=== PATIENT | male | born 1955 ===

== ENCOUNTER 2018-09-15 19:45 | Observation (INO) | payer MEDICARE ==
--- NOTE | 2018-09-15 20:22 | ED PDOC ---
Lower Extremity Pain/Injury Time Seen by Provider: 09/15/18 19:56 Chief Complaint (Nursing): Lower Extremity Problem/Injury Chief Complaint (Provider): Lower Extremity Problem/Injury History Per: Patient History/Exam Limitations: no limitations Onset/Duration Of Symptoms: Days (x 1 week) Current Symptoms Are (Timing): Still Present Additional Complaint(s): 63 year old male with a history of Parkinsonism presents to the ED with trouble ambulating and leg swelling onset one week. Patient is currently taking cinemat (carbidopa and levodopa) for Parkinsonism. For the past week, he has had worsening gait associated leg swelling, right leg worse than left. He denies fever, cough, shortness of breath, chest pain, nausea, or vomiting. Patient is complaint with medications. When asked if he sees a neurologist, he said no because he is uninsured and unable to see a specialist. 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 PMD: [facility] Past Medical History Reviewed: Historical Data Vital Signs: Last Vital Signs Temp 98.9 F 09/15/18 19:46 Pulse 88 09/15/18 19:46 Resp 18 09/15/18 19:46 BP 121/75 09/15/18 19:46 Pulse Ox 99 09/15/18 19:46 - Medical History PMH: Parkinson's Disease - Surgical History Other surgeries: right eye surgery following traumatic injury in 1981. - Family History Family History: States: Unknown Family Hx - Social History Current smoker - smoking cessation education provided: No Ex-Smoker (has not smoked in the last 12 months): No Alcohol: None Drugs: Denies - Home Medications Home Medications: Ambulatory Orders Medication Instructions Recorded Carbidopa/Levodopa [Sinemet Cr 1 tab PO TID 09/16/18 25-100 Tablet] - Allergies Allergies/Adverse Reactions: Allergies Allergy/AdvReac Type Severity Reaction Status Date / Time No Known Allergies Allergy Verified 09/15/18 19:46 Review of Systems ROS Statement: Except As Marked, All Systems Reviewed And Found Negative Eyes: Positive for: Other (right eye blindness) Musculoskeletal: Positive for: Other (leg swelling) Physical Exam - Reviewed Nursing Documentation Reviewed: Yes Vital Signs Reviewed: Yes - Physical Exam Appears: Positive for: No Acute Distress Head Exam: Positive for: ATRAUMATIC, NORMOCEPHALIC Skin: Positive for: Normal Color, Warm, Dry Eye Exam: Positive for: Other (Right eye blindness). Negative for: PERRL (not in right eye) Cardiovascular/Chest: Positive for: Regular Rate, Rhythm. Negative for: Murmur Respiratory: Positive for: Normal Breath Sounds. Negative for: Respiratory Distress Gastrointestinal/Abdominal: Positive for: Normal Exam, Soft. Negative for: Tenderness Extremity: Positive for: Other (1+ edema lower extremities, 3+ edema, warmth, erythema and induration to the tibial surface) Neurologic/Psych: Positive for: Alert, Oriented, Other (pillidrol tremor and mass phases) - Laboratory Results Result Diagrams: 09/15/18 20:55 09/15/18 20:55 - ECG O2 Sat by Pulse Oximetry: 99 (RA) Pulse Ox Interpretation: Normal Medical Decision Making Medical Decision Making: Time: 2004 Initial Impression: 63 year old male with worsening gait in setting of known Parkinsonism and lower extremity swelling Initial Plan: --BNP --CMP --Lact acid --Troponin --CBC with differentials --U dip --PTT --Prothrombin time --Blood culture --UA --US duplex lower extremities 22:30 Lower Extremity US FINDINGS: DEEP VEINS: The common femoral, superficial femoral, and popliteal veins are echolucent and compressible. There is normal color Doppler flow throughout. The visualized calf veins appear patent. SUPERFICIAL VEINS: The visualized greater saphenous vein is patent. SOFT TISSUES: No popliteal fossa cyst or other abnormalities. IMPRESSION: No deep venous thrombosis evident on bilateral lower extremity examination. 23:00 Labs reviewed and showed no clinical significant abnormalities with exception of UA that is indicative of UTI. In this provider's opinion unsteady gait is likely related to cellulitic process of right lower extremity. Patient will be admitted for antibiotic treatment as well as neurological consultation for worsening Parkinson's. Diagnosis: cellulitis of right lower extremity, UTI and Parkinson's disease [place] referred to Dr Narinder nicholson licensed professional counselor Scribe Attestation: Documented by Jane Lambert, acting as a scribe for Nile Pelletier MD Provider Scribe Attestation: All medical record entries made by the Scribe were at my direction and personally dictated by me. I have reviewed the chart and agree that the record accurately reflects my personal performance of the history, physical exam, medical decision making, and the department course for this patient. I have also personally directed, reviewed, and agree with the discharge instructions and disposition. Disposition - Clinical Impression Clinical Impression: Cellulitis of right lower extremity, UTI (urinary tract infection), Parkinsonism Discussed With : Syed Barcenas - Disposition Disposition Time: 23:00 Condition: FAIR - Pt Status Changed To: Hospital Disposition Of: Inpatient - Admit Certification Admit to Inpatient:: After my assessment, the patient will require hospitalization for at least two midnights. This is because of the severity of symptoms shown, intensity of services needed, and/or the medical risk in this patient being treated as an outpatient.
[2018-09-15] MEDS ORDERED: Alum-Mag Hydrox-Simethicone Susp (30 mL) PO STA (20:31)
[2018-09-15 21:07] LABS: BASO # 0.1 K/uL (0.0-0.2); BASO % 1.1 % (0.0-2.0); EOS # 0.5 K/uL (0.0-0.7); HEMOGLOBIN 12.9 g/dL (12.0-18.0); LYMPH # 2.6 K/uL (1.0-4.3); MEAN CELL VOLUME 88.1 fl (80.0-94.0); MEAN CORPUSCULAR HEMOGLOBIN 29.4 pg (27.0-31.0); MEAN CORPUSCULAR HGB CONC 33.4 g/dL (33.0-37.0); MEAN PLATELET VOLUME 8.8 fl (7.2-11.7); MONO # 0.5 K/uL (0.0-0.8); MONO % 5.6 % (0.0-10.0); NEUT # 4.5 K/uL (1.8-7.0); NEUT % 55.3 % (50.0-75.0); NRBC % 0.1 % (0.0-0.0); RBC 4.38 Mil/uL (4.40-5.90); WHITE BLOOD COUNT 8.1 K/uL (4.8-10.8)
[2018-09-15 21:13] LABS: INR 1.1; PROTHROMBIN TIME 12.7 Seconds (9.8-13.1)
[2018-09-15 21:15] LABS: ALBUMIN 4.3 g/dL (3.5-5.0); ALT/SGPT 22 U/L (21-72); AST/SGOT 33 U/L (17-59); BLOOD UREA NITROGEN 17 mg/dl (9-20); CALCIUM 9.9 mg/dL (8.4-10.2); GFR NON-AFRICAN AMERICAN > 60
[2018-09-15 21:16] LABS: PARTIAL THROMBOPLASTIN TIME 31.7 Seconds (25.6-37.1)
[2018-09-15 21:27] LABS: B-TYPE NATRIURETIC PEPTIDE 39.4 pg/ml (0-900)
[2018-09-15] MEDS ORDERED: Alum-Mag Hydrox-Simethicone Susp (30 mL) ONE (22:34)
[2018-09-15] MEDS ORDERED: Piperacillin/Tazobact 3.375 GM in Sodium Chloride 0.9% 100 ML IV STA (22:53)
[2018-09-15 23:01] LABS: URINE BACTERIA FEW (<OCC); URINE BILIRUBIN NEGATIVE (NEGATIVE); URINE BLOOD MODERATE (NEGATIVE); URINE CLARITY TURBID (Clear); URINE COLOR YELLOW (YELLOW); URINE GLUCOSE (UA) NEG (Normal); URINE LEUKOCYTE ESTERASE LARGE Leu/uL (Negative); URINE PROTEIN 100 mg/dL (NEGATIVE); URINE UROBILINOGEN 0.2-1.0 mg/dL (0.2-1.0); WBC CLUMPS MOD /hpf
[2018-09-15] MEDS ORDERED: Piperacillin/Tazobact 3.375 gm Inj IVPB ONE (23:03)
[2018-09-15] MEDS ORDERED: Vancomycin 1 g Inj ONE (23:17)
--- NOTE | 2018-09-16 00:14 | CP.PCM.HP ---
<ScanlonJael lopez - Last Filed: 09/16/18 01:32> History of Present Illness - History of Present Illness History of Present Illness: 63 year old male with hx of parkinsonism presented to ED with complaint right lower extremity erythema and edema present for past week. He denies any pain the lower extremity, denies fevers, chills. He has history of this in the past, treated for similar sx about 3-4 month ago. History of parkinsonism, does not have neurologist. per chart taking cinemet. No change in tremors, reports difficulty with gait for past few days. ROS: No visual changes, no harry ucinations, no headahces, no chest pain, dyspnea, abdominal pain, urinary symptoms. PMH: parkinsonism Meds: cinemet Allergies: NKDA Social: nonsmoker, no etoh use Surgical hx : right eye surgery Present on Admission - Present on Admission Any Indicators Present on Admission: No Review of Systems - Review of Systems Review of Systems: as per hpi Past Patient History - Past Social History Alcohol: None Drugs: Denies - NEUROLOGICAL Hx Parkinson's Disease: Yes - PSYCHIATRIC Hx Substance Use: No Meds Allergies/Adverse Reactions: Allergies Allergy/AdvReac Type Severity Reaction Status Date / Time No Known Allergies Allergy Verified 09/15/18 19:46 Physical Exam - Constitutional Appears: Non-toxic (mask like face) - Eye Exam Eye Exam: Normal appearance - ENT Exam ENT Exam: Mucous Membranes Moist - Respiratory Exam Respiratory Exam: Clear to Auscultation Bilateral, NORMAL BREATHING PATTERN - Cardiovascular Exam Cardiovascular Exam: REGULAR RHYTHM, +S1, +S2 - GI/Abdominal Exam GI & Abdominal Exam: Soft (nontender, nondistended) - Extremities Exam Additional comments: +2 pitting edema right lower extremity with erythema and warms in gaiter distribution, no erythema in left leg, +1 pitting edema in left leg - Neurological Exam Neurological exam: Alert Additional comments: gait not assessed - Skin Additional comments: noted in extremity exam Results - Vital Signs Recent Vital Signs: Last Vital Signs Temp 98.9 F 09/15/18 19:46 Pulse 88 09/15/18 19:46 Resp 18 09/15/18 19:46 BP 121/75 09/15/18 19:46 Pulse Ox 99 09/15/18 23:08 - Labs Result Diagrams: 09/15/18 20:55 09/15/18 20:55 Labs: Laboratory Results - last 24 hr 09/15/18 09/15/18 09/15/18 20:55 20:55 20:55 WBC 8.1 RBC 4.38 L Hgb 12.9 Hct 38.5 MCV 88.1 MCH 29.4 MCHC 33.4 RDW 14.0 Plt Count 246 MPV 8.8 Neut % (Auto) 55.3 Lymph % (Auto) 32.0 [place] % (Auto) 5.6 Eos % (Auto) 6.0 H Baso % (Auto) 1.1 Neut # (Auto) 4.5 Lymph # (Auto) 2.6 [place] # (Auto) 0.5 Eos # (Auto) 0.5 Baso # (Auto) 0.1 PT 12.7 INR 1.1 APTT 31.7 Sodium 144 Potassium 3.9 Chloride 105 Carbon Dioxide 33 H Anion Gap 10 BUN 17 Creatinine 0.9 Est GFR ( Amer) > 60 Est GFR (Non-Af Amer) > 60 Random Glucose 94 Lactic Acid Calcium 9.9 Total Bilirubin 0.4 AST 33 ALT 22 Alkaline Phosphatase 76 Troponin I < 0.0120 NT-Pro-B Natriuret Pep 39.4 Total Protein 8.7 H Albumin 4.3 Globulin 4.4 H Albumin/Globulin Ratio 1.0 Urine Color Urine Clarity Urine pH Ur Specific [place] Urine Protein Urine Glucose (UA) Urine Ketones Urine Blood Urine Nitrate Urine Bilirubin Urine Urobilinogen Ur Leukocyte Esterase Urine RBC (Auto) Urine WBC Clumps (Auto) Urine Microscopic WBC Urine Bacteria Urine Yeast (Budding) C. difficile Ag & Toxin 09/15/18 09/15/18 09/15/18 20:55 21:12 22:35 WBC RBC Hgb Hct MCV MCH MCHC RDW Plt Count MPV Neut % (Auto) Lymph % (Auto) [place] % (Auto) Eos % (Auto) Baso % (Auto) Neut # (Auto) Lymph # (Auto) [place] # (Auto) Eos # (Auto) Baso # (Auto) PT INR APTT Sodium Potassium Chloride Carbon Dioxide Anion Gap BUN Creatinine Est GFR ( Amer) Est GFR (Non-Af Amer) Random Glucose Lactic Acid 0.7 Calcium Total Bilirubin AST ALT Alkaline Phosphatase Troponin I NT-Pro-B Natriuret Pep Total Protein Albumin Globulin Albumin/Globulin Ratio Urine Color Yellow Urine Clarity Turbid Urine pH 5.0 Ur Specific [place] 1.016 Urine Protein 100 Urine Glucose (UA) Neg Urine Ketones Negative Urine Blood Moderate Urine Nitrate Positive H Urine Bilirubin Negative Urine Urobilinogen 0.2-1.0 Ur Leukocyte Esterase Large Urine RBC (Auto) 33 H Urine WBC Clumps (Auto) Mod H Urine Microscopic WBC 1582 H Urine Bacteria Few H Urine Yeast (Budding) Mod H C. difficile Ag & Toxin Negative Assessment & Plan - Assessment and Plan (Free Text) Assessment: 63 year old male with history of parkinsonsm admitted for cellulitis, with parkinsonsim exacerbation. Patient is afebrile without leukocytosis. UA + WBC, Nitrates and leukocytes however pt is asymptomatic. Reported changes in gait, difficulty walking at home, denies any falls. Does not use walker or cane. DVT ruled out with u/s. #Cellulitis #Parkinsonism exacerbation #UTI #DVT prophylaxis -IV ancef -Neuro consult -follow up urine culture -Lovenox 40mg sc Patient seen and examined with attending. <Syed Barcenas - Last Filed: 09/16/18 02:23> Results - Vital Signs Recent Vital Signs: Last Vital Signs Temp 98.7 F 09/16/18 00:58 Pulse 103 H 09/16/18 00:58 Resp 19 09/16/18 00:58 BP 131/74 09/16/18 00:58 Pulse Ox 99 09/16/18 01:24 - Labs Result Diagrams: 09/15/18 20:55 09/15/18 20:55 Labs: Laboratory Results - last 24 hr 09/15/18 09/15/18 09/15/18 20:55 20:55 20:55 WBC 8.1 RBC 4.38 L Hgb 12.9 Hct 38.5 MCV 88.1 MCH 29.4 MCHC 33.4 RDW 14.0 Plt Count 246 MPV 8.8 Neut % (Auto) 55.3 Lymph % (Auto) 32.0 [place] % (Auto) 5.6 Eos % (Auto) 6.0 H Baso % (Auto) 1.1 Neut # (Auto) 4.5 Lymph # (Auto) 2.6 [place] # (Auto) 0.5 Eos # (Auto) 0.5 Baso # (Auto) 0.1 PT 12.7 INR 1.1 APTT 31.7 Sodium 144 Potassium 3.9 Chloride 105 Carbon Dioxide 33 H Anion Gap 10 BUN 17 Creatinine 0.9 Est GFR ( Amer) > 60 Est GFR (Non-Af Amer) > 60 Random Glucose 94 Lactic Acid Calcium 9.9 Total Bilirubin 0.4 AST 33 ALT 22 Alkaline Phosphatase 76 Troponin I < 0.0120 NT-Pro-B Natriuret Pep 39.4 Total Protein 8.7 H Albumin 4.3 Globulin 4.4 H Albumin/Globulin Ratio 1.0 Urine Color Urine Clarity Urine pH Ur Specific [place] Urine Protein Urine Glucose (UA) Urine Ketones Urine Blood Urine Nitrate Urine Bilirubin Urine Urobilinogen Ur Leukocyte Esterase Urine RBC (Auto) Urine WBC Clumps (Auto) Urine Microscopic WBC Urine Bacteria Urine Yeast (Budding) C. difficile Ag & Toxin 09/15/18 09/15/18 09/15/18 20:55 21:12 22:35 WBC RBC Hgb Hct MCV MCH MCHC RDW Plt Count MPV Neut % (Auto) Lymph % (Auto) [place] % (Auto) Eos % (Auto) Baso % (Auto) Neut # (Auto) Lymph # (Auto) [place] # (Auto) Eos # (Auto) Baso # (Auto) PT INR APTT Sodium Potassium Chloride Carbon Dioxide Anion Gap BUN Creatinine Est GFR ( Amer) Est GFR (Non-Af Amer) Random Glucose Lactic Acid 0.7 Calcium Total Bilirubin AST ALT Alkaline Phosphatase Troponin I NT-Pro-B Natriuret Pep Total Protein Albumin Globulin Albumin/Globulin Ratio Urine Color Yellow Urine Clarity Turbid Urine pH 5.0 Ur Specific [place] 1.016 Urine Protein 100 Urine Glucose (UA) Neg Urine Ketones Negative Urine Blood Moderate Urine Nitrate Positive H Urine Bilirubin Negative Urine Urobilinogen 0.2-1.0 Ur Leukocyte Esterase Large Urine RBC (Auto) 33 H Urine WBC Clumps (Auto) Mod H Urine Microscopic WBC 1582 H Urine Bacteria Few H Urine Yeast (Budding) Mod H C. difficile Ag & Toxin Negative Attending/Attestation - Attestation I have personally seen and examined this patient.: Yes I have fully participated in the care of the patient.: Yes I have reviewed all pertinent clinical information: Yes Notes (Text): 09/16/18 02:16 I saw and examined his patient shoulder to shoulder with Dr Scanlon.The assessment and plan above reflect my direct input. This 63 years old male with Hx of Parkinson's Disease with more difficulty to walk and with edema to the right lower extremity, was found to have a Cellulites at the distal half of the right leg. his Urine was also found to be positive with yeast. He will be treated with Cefazoline for both the Cellulites and the UTI. Neurology consult is called for the worsening Parkinson's Disease while he is continuing with His Carbadopa/Levodopa. Syed Barcenas MD
[2018-09-16] MEDS: ceFAZolin 1 GM in Sodium Chloride 0.9% 100 ML IVPB SCH ×2 (03:47→09:23)
--- NOTE | 2018-09-16 08:54 | US ---
Date of service: 09/15/2018 PROCEDURE: Bilateral lower extremity venous duplex Doppler. HISTORY: B/L LE swelling COMPARISON: None available. TECHNIQUE: Bilateral common femoral, superficial femoral, popliteal and posterior tibial veins were evaluated. Flow was assessed with color Doppler, graded compressibility, assessment of phasic flow and augmentation response. FINDINGS: COMMON FEMORAL VEIN: Right CFV: Unremarkable. Left CFV: Unremarkable. SUPERFICIAL FEMORAL VEIN: Right SFV: Unremarkable. Left SFV: Unremarkable. POPLITEAL VEIN: Right Popliteal: Unremarkable. Left Popliteal: Unremarkable. POSTERIOR TIBIAL VEIN: Right PTV: Unremarkable. Left PTV: Unremarkable. OTHER FINDINGS: None. IMPRESSION: No sonographic evidence of deep venous thrombosis lower extremities. Concordant preliminary report from [facility], 09/15/2018.
[2018-09-16] MEDS ORDERED: Carbidopa/Levodopa 25/100 CR PO SCH (09:00)
[2018-09-16] MEDS: Enoxaparin 40 mg Syringe SC SCH (09:22)
--- NOTE | 2018-09-16 10:34 | CP.PCM.PN ---
<Rudy Stratton - Last Filed: 09/16/18 10:30> Subjective - Date & Time of Evaluation Date of Evaluation: 09/16/18 Time of Evaluation: 10:30 - Subjective Subjective: 63 yo male seen and evaluated at bedside resting comfortably. States that he is in no pain today. Denies N/V/F/C/SOB/CP. States he was able to void with pain or discomfort. Reports no acute events overnight and that he was able to sleep well. Objective - Vital Signs/Intake and Output Vital Signs (last 24 hours): Temp Pulse Resp BP Pulse Ox 98.6 F 92 H 18 115/69 98 09/16/18 08:00 09/16/18 08:00 09/16/18 08:00 09/16/18 08:00 09/16/18 08:00 - Medications Medications: Current Medications Carbidopa/Levodopa (Sinemet Cr) 1 tab PO TID [facility] Last Admin: 09/16/18 09:24 Dose: 1 tab Enoxaparin Sodium (Lovenox) 40 mg SC DAILY [facility]; Protocol Last Admin: 09/16/18 09:22 Dose: 40 mg Fluconazole (Diflucan) 200 mg PO DAILY [facility]; Protocol Last Admin: 09/16/18 09:23 Dose: 200 mg Cefazolin Sodium 1 gm/ Sodium (Chloride) 100 mls @ 100 mls/hr IVPB Q6 [facility]; Protocol Last Admin: 09/16/18 09:23 Dose: 100 mls/hr - Labs Labs: 09/15/18 20:55 09/15/18 20:55 PT 12.7 Seconds (9.8-13.1) 09/15/18 20:55 INR 1.1 09/15/18 20:55 APTT 31.7 Seconds (25.6-37.1) 09/15/18 20:55 - Constitutional Appears: Well, Non-toxic, No Acute Distress - Head Exam Head Exam: NORMAL INSPECTION - Eye Exam Additional comments: Right eye sx in past - ENT Exam ENT Exam: Mucous Membranes Moist - Respiratory Exam Respiratory Exam: Clear to Ausculation Bilateral, NORMAL BREATHING PATTERN - Cardiovascular Exam Cardiovascular Exam: REGULAR RHYTHM, +S1, +S2 - GI/Abdominal Exam GI & Abdominal Exam: Soft, Normal Bowel Sounds. absent: Tenderness - Extremities Exam Extremities Exam: Normal Capillary Refill, Pedal Edema. absent: Tenderness Additional comments: +1 pitting edema to LE b/l erythema present proximal to right ankle circumferentially - improving - Neurological Exam Neurological Exam: Alert, Awake - Psychiatric Exam Psychiatric exam: Normal Affect, Normal Mood - Skin Skin Exam: Dry, Warm Additional comments: erythema at RLE Assessment and Plan - Assessment and Plan (Free Text) Assessment: 63 yo male with pmhx of parkinsonism seen and evaluated for right lower extremity cellulitis and parkinsonism exacerbation Plan: 1. cellullitis - ancef 1 gm IVPB Q6 day 1 dose 2 - IV vanc and zosyn 1 dose each IV in ED - LE US - negative DVT b/l - 2. parkinsonism exacerbation - Neurology consult Dr. Purvis - recs appreciated f/u - sinemet TID 1 tab PO - PT/OT consulted - recs appreciated f/u 3. UTI - UA - WBC 1582 H - bacteria few H - yeast moderate H - nitrate positive H - diflucan 200mg PO daily - Urine C&S - collected f/u results 4. DVT prophylaxis - Lovenox 40 mg SC <Mariella Gonzalez - Last Filed: 09/16/18 17:51> Objective - Vital Signs/Intake and Output Vital Signs (last 24 hours): Temp Pulse Resp BP Pulse Ox 98.6 F 91 H 17 105/68 97 09/16/18 15:51 09/16/18 16:25 09/16/18 15:51 09/16/18 15:51 09/16/18 16:25 - Medications Medications: Current Medications Carbidopa/Levodopa (Sinemet) 2 tab PO TID [facility] Enoxaparin Sodium (Lovenox) 40 mg SC DAILY [facility]; Protocol Last Admin: 09/16/18 09:22 Dose: 40 mg Fluconazole (Diflucan) 200 mg PO DAILY [facility]; Protocol Last Admin: 09/16/18 09:23 Dose: 200 mg Cefazolin Sodium 1 gm/ Sodium (Chloride) 50 mls @ 50 mls/hr IVPB Q6 [facility]; Protocol Tamsulosin HCl (Flomax) 0.4 mg PO DAILY [facility] - Labs Labs: 09/15/18 20:55 09/15/18 20:55 PT 12.7 Seconds (9.8-13.1) 09/15/18 20:55 INR 1.1 09/15/18 20:55 APTT 31.7 Seconds (25.6-37.1) 09/15/18 20:55 Attending/Attestation - Attestation I have personally seen and examined this patient.: Yes I have fully participated in the care of the patient.: Yes I have reviewed all pertinent clinical information, including history, physical exam and plan: Yes
--- NOTE | 2018-09-16 13:01 | CP.PCM.CON ---
History of Present Illness - History of Present Illness History of Present Illness: Neurology consult dictated. : 63 yr old male who has a history of Parkinsons disease for several years, and is on sinemet 25/100 tid. He is admitted for leg swelling. Plan: 1. Increase sinemet CR 50/200 am , continue the rest. 2. rule out dvt. Thank you Dr. briceño Past Patient History - Past Medical History & Family History Past Medical History?: Yes - Past Social History Alcohol: None Drugs: Denies - CARDIAC Hx Cardiac Disorders: No - PULMONARY Hx Respiratory Disorders: No - NEUROLOGICAL Hx Parkinson's Disease: Yes - HEENT Hx HEENT Problems: Yes - RENAL Hx Chronic Kidney Disease: No - ENDOCRINE/METABOLIC Hx Endocrine Disorders: No - HEMATOLOGICAL/ONCOLOGICAL Hx Blood Disorders: No Hx AIDS: No Hx Human Immunodeficiency Virus (HIV): No - INTEGUMENTARY Hx Dermatological Problems: No - MUSCULOSKELETAL/RHEUMATOLOGICAL Hx Musculoskeletal Disorders: No Hx Falls: No - GASTROINTESTINAL Hx Gastrointestinal Disorders: No - GENITOURINARY/GYNECOLOGICAL Hx Genitourinary Disorders: No - PSYCHIATRIC Hx Substance Use: No - SURGICAL HISTORY Hx Surgeries: Yes Hx Eye Surgery: Yes (right cornea) - ANESTHESIA Hx Anesthesia: Yes Hx Anesthesia Reactions: No Meds Allergies/Adverse Reactions: Allergies Allergy/AdvReac Type Severity Reaction Status Date / Time No Known Allergies Allergy Verified 09/15/18 19:46 - Medications Medications: Current Medications Carbidopa/Levodopa (Sinemet Cr) 1 tab PO TID [facility] Last Admin: 09/16/18 09:24 Dose: 1 tab Enoxaparin Sodium (Lovenox) 40 mg SC DAILY [facility]; Protocol Last Admin: 09/16/18 09:22 Dose: 40 mg Fluconazole (Diflucan) 200 mg PO DAILY [facility]; Protocol Last Admin: 09/16/18 09:23 Dose: 200 mg Cefazolin Sodium 1 gm/ Sodium (Chloride) 50 mls @ 50 mls/hr IVPB Q6 [facility]; Protocol Results - Vital Signs Recent Vital Signs: Last Vital Signs Temp 98.3 F 09/16/18 12:00 Pulse 69 09/16/18 12:00 Resp 18 09/16/18 12:00 BP 94/59 L 09/16/18 12:00 Pulse Ox 96 09/16/18 12:00 - Labs Result Diagrams: 09/15/18 20:55 09/15/18 20:55 Labs: Laboratory Results - last 24 hr 09/15/18 09/15/18 09/15/18 20:55 20:55 20:55 WBC 8.1 RBC 4.38 L Hgb 12.9 Hct 38.5 MCV 88.1 MCH 29.4 MCHC 33.4 RDW 14.0 Plt Count 246 MPV 8.8 Neut % (Auto) 55.3 Lymph % (Auto) 32.0 [place] % (Auto) 5.6 Eos % (Auto) 6.0 H Baso % (Auto) 1.1 Neut # (Auto) 4.5 Lymph # (Auto) 2.6 [place] # (Auto) 0.5 Eos # (Auto) 0.5 Baso # (Auto) 0.1 PT 12.7 INR 1.1 APTT 31.7 Sodium 144 Potassium 3.9 Chloride 105 Carbon Dioxide 33 H Anion Gap 10 BUN 17 Creatinine 0.9 Est GFR ( Amer) > 60 Est GFR (Non-Af Amer) > 60 Random Glucose 94 Lactic Acid Calcium 9.9 Total Bilirubin 0.4 AST 33 ALT 22 Alkaline Phosphatase 76 Troponin I < 0.0120 NT-Pro-B Natriuret Pep 39.4 Total Protein 8.7 H Albumin 4.3 Globulin 4.4 H Albumin/Globulin Ratio 1.0 Urine Color Urine Clarity Urine pH Ur Specific [place] Urine Protein Urine Glucose (UA) Urine Ketones Urine Blood Urine Nitrate Urine Bilirubin Urine Urobilinogen Ur Leukocyte Esterase Urine RBC (Auto) Urine WBC Clumps (Auto) Urine Microscopic WBC Urine Bacteria Urine Yeast (Budding) C. difficile Ag & Toxin 09/15/18 09/15/18 09/15/18 20:55 21:12 22:35 WBC RBC Hgb Hct MCV MCH MCHC RDW Plt Count MPV Neut % (Auto) Lymph % (Auto) [place] % (Auto) Eos % (Auto) Baso % (Auto) Neut # (Auto) Lymph # (Auto) [place] # (Auto) Eos # (Auto) Baso # (Auto) PT INR APTT Sodium Potassium Chloride Carbon Dioxide Anion Gap BUN Creatinine Est GFR ( Amer) Est GFR (Non-Af Amer) Random Glucose Lactic Acid 0.7 Calcium Total Bilirubin AST ALT Alkaline Phosphatase Troponin I NT-Pro-B Natriuret Pep Total Protein Albumin Globulin Albumin/Globulin Ratio Urine Color Yellow Urine Clarity Turbid Urine pH 5.0 Ur Specific [place] 1.016 Urine Protein 100 Urine Glucose (UA) Neg Urine Ketones Negative Urine Blood Moderate Urine Nitrate Positive H Urine Bilirubin Negative Urine Urobilinogen 0.2-1.0 Ur Leukocyte Esterase Large Urine RBC (Auto) 33 H Urine WBC Clumps (Auto) Mod H Urine Microscopic WBC 1582 H Urine Bacteria Few H Urine Yeast (Budding) Mod H C. difficile Ag & Toxin Negative
--- NOTE | 2018-09-16 14:43 | CP.PCM.DIS ---
Addendum entered and electronically signed by Arturo Sorensen MD 09/16/18 20:36: Patient could not obtain a ride today. Will have case management set up ride for patient in AM. Hold d/c. Addendum entered by Mariella Gonzalez MD 09/16/18 17:58: Pt lives with his sister , ambulates outside with a cane . Arrangement made by Case Management for Home PT. Original Note: <Rudy Stratton - Last Filed: 09/16/18 14:51> Provider - Provider Date of Admission: 09/15/18 22:54 Attending physician: Syed Barcenas Primary care physician: Mark Campa [facility] Consults: Neurology - Purvis Time Spent in preparation of Discharge (in minutes): 30 Diagnosis - Discharge Diagnosis (1) Cellulitis of right lower extremity Status: Acute (2) Parkinsonism Status: Acute (3) UTI (urinary tract infection) Status: Acute Hospital Course - Lab Results Lab Results: Most Recent Lab Values WBC 8.1 K/uL (4.8-10.8) 09/15/18 20:55 RBC 4.38 Mil/uL (4.40-5.90) L 09/15/18 20:55 Hgb 12.9 g/dL (12.0-18.0) 09/15/18 20:55 Hct 38.5 % (35.0-51.0) 09/15/18 20:55 MCV 88.1 fl (80.0-94.0) 09/15/18 20:55 MCH 29.4 pg (27.0-31.0) 09/15/18 20:55 MCHC 33.4 g/dL (33.0-37.0) 09/15/18 20:55 RDW 14.0 % (11.5-14.5) 09/15/18 20:55 Plt Count 246 K/uL (130-400) 09/15/18 20:55 MPV 8.8 fl (7.2-11.7) 09/15/18 20:55 Neut % (Auto) 55.3 % (50.0-75.0) 09/15/18 20:55 Lymph % (Auto) 32.0 % (20.0-40.0) 09/15/18 20:55 [place] % (Auto) 5.6 % (0.0-10.0) 09/15/18 20:55 Eos % (Auto) 6.0 % (0.0-4.0) H 09/15/18 20:55 Baso % (Auto) 1.1 % (0.0-2.0) 09/15/18 20:55 Neut # (Auto) 4.5 K/uL (1.8-7.0) 09/15/18 20:55 Lymph # (Auto) 2.6 K/uL (1.0-4.3) 09/15/18 20:55 [place] # (Auto) 0.5 K/uL (0.0-0.8) 09/15/18 20:55 Eos # (Auto) 0.5 K/uL (0.0-0.7) 09/15/18 20:55 Baso # (Auto) 0.1 K/uL (0.0-0.2) 09/15/18 20:55 PT 12.7 Seconds (9.8-13.1) 09/15/18 20:55 INR 1.1 09/15/18 20:55 APTT 31.7 Seconds (25.6-37.1) 09/15/18 20:55 Sodium 144 mmol/l (132-148) 09/15/18 20:55 Potassium 3.9 MMOL/L (3.6-5.0) 09/15/18 20:55 Chloride 105 mmol/L (98-107) 09/15/18 20:55 Carbon Dioxide 33 mmol/L (22-30) H 09/15/18 20:55 Anion Gap 10 (10-20) 09/15/18 20:55 BUN 17 mg/dl (9-20) 09/15/18 20:55 Creatinine 0.9 mg/dl (0.8-1.5) 09/15/18 20:55 Est GFR ( Amer) > 60 09/15/18 20:55 Est GFR (Non-Af Amer) > 60 09/15/18 20:55 Random Glucose 94 mg/dL (75-110) 09/15/18 20:55 Lactic Acid 0.7 MMOL/L (0.7-2.1) 09/15/18 20:55 Calcium 9.9 mg/dL (8.4-10.2) 09/15/18 20:55 Total Bilirubin 0.4 mg/dl (0.2-1.3) 09/15/18 20:55 AST 33 U/L (17-59) 09/15/18 20:55 ALT 22 U/L (21-72) 09/15/18 20:55 Alkaline Phosphatase 76 U/L (38-126) 09/15/18 20:55 Troponin I < 0.0120 ng/mL (0.00-0.120) 09/15/18 20:55 NT-Pro-B Natriuret Pep 39.4 pg/ml (0-900) 09/15/18 20:55 Total Protein 8.7 G/DL (6.3-8.2) H 09/15/18 20:55 Albumin 4.3 g/dL (3.5-5.0) 09/15/18 20: Globulin 4.4 gm/dL (2.2-3.9) H 09/15/18 20:55 Albumin/Globulin Ratio 1.0 (1.0-2.1) 09/15/18 20:55 Urine Color Yellow (YELLOW) 09/15/18 22:35 Urine Clarity Turbid (Clear) 09/15/18 22:35 Urine pH 5.0 (5.0-8.0) 09/15/18 22:35 Ur Specific [place] 1.016 (1.003-1.030) 09/15/18 22:35 Urine Protein 100 mg/dL (NEGATIVE) 09/15/18 22:35 Urine Glucose (UA) Neg mg/dL (Normal) 09/15/18 22:35 Urine Ketones Negative mg/dL (NEGATIVE) 09/15/18 22:35 Urine Blood Moderate (NEGATIVE) 09/15/18 22:35 Urine Nitrate Positive (NEGATIVE) H 09/15/18 22:35 Urine Bilirubin Negative (NEGATIVE) 09/15/18 22:35 Urine Urobilinogen 0.2-1.0 mg/dL (0.2-1.0) 09/15/18 22:35 Ur Leukocyte Esterase Large Rubén/uL (Negative) 09/15/18 22:35 Urine RBC (Auto) 33 /hpf (0-3) H 09/15/18 22:35 Urine WBC Clumps (Auto) Mod /hpf (NONE) H 09/15/18 22:35 Urine Microscopic WBC 1582 /hpf (0-5) H 09/15/18 22:35 Urine Bacteria Few (<OCC) H 09/15/18 22:35 Urine Yeast (Budding) Mod /hpf (NEGATIVE) H 09/15/18 22:35 C. difficile Ag & Toxin Negative (NEGATIVE) 09/15/18 21:12 - Hospital Course Hospital Course: 63 yo male with pmhx of parkinsonism seen and evaluated for right lower extremity cellulitis, UTI, and parkinsonism exacerbation. Patient was given IV vancomycin and zosyn 1 dose each IV while in the ED. While in house he was started on ancef 1 gm IVPB Q6 and was given 2 doses 09/16/18. A LE US was performed and was negative for DVT b/l. Neurology was consulted for his parkinsonism and Dr. Purvis recommended changing his dose of sinemet from 25/100 to 50/200 TID PO. Patient will have outpatient PT sent to his home. Patients urinalysis came back and showed elevated WBC at 1582 and moderate yeast as well as few bacteria and positive nitrate. Patient taking diflucan 200mg PO daily. Patient is stable for discharge and will have new medications sent to his pharmacy. He will get bactrim DS, diflucan, flomax, and increased sinemet dose sent to his pharmacy. - Date & Time of H&P Date of H&P: 09/16/18 Time of H&P: 14:44 Discharge Exam - Head Exam Head Exam: NORMAL INSPECTION - Eye Exam Eye Exam: EOMI, Normal appearance - ENT Exam ENT Exam: Mucous Membranes Moist - Respiratory Exam Respiratory Exam: Clear to PA & Lateral, NORMAL BREATHING PATTERN - Cardiovascular Exam Cardiovascular Exam: REGULAR RHYTHM, +S1, +S2 - GI/Abdominal Exam GI & Abdominal Exam: Normal Bowel Sounds, Soft. absent: Tenderness - Extremities Exam Extremities exam: normal capillary refill Additional comments: nonpitting edema to LE b/l mild erythema present proximal to right ankle circumferentially - Neurological Exam Neurological exam: Alert, Oriented x3 - Psychiatric Exam Psychiatric exam: Normal Affect, Normal Mood - Skin Skin Exam: Dry, Intact, Warm Discharge Plan - Discharge Medications Prescriptions: Carbidopa/Levodopa 25/100 mg [Sinemet] 2 tab PO TID #180 tab Fluconazole [Diflucan] 100 mg PO DAILY #6 tab Sulfamethoxazole/Trimethoprim [Bactrim DS 800 mg-160 mg] 1 tab PO BID #10 tab Tamsulosin [Flomax] 0.4 mg PO DAILY #30 cap - Follow Up Plan Condition: FAIR Disposition: HOME/ ROUTINE Instructions: Urinary Tract Infection in Women (DC), Urinary Tract Infection in Men (DC), Cellulitis (DC), Dysuria (GEN) Additional Instructions: Please follow up with PMD in 1 week ER precautions reviewed: worsening symptoms, fever over 100.4 with Tylenol Clinical Quality Measures - Date & Time of Discharge Summary Date of Discharge Summary: 09/16/18 Time of Discharge Summary: 14:49 <Mariella Gonzalez Marilee - Last Filed: 09/16/18 17:53> Provider - Provider Date of Admission: 09/15/18 22:54 Attending physician: Syed Barcenas [facility] Course - Lab Results Lab Results: Most Recent Lab Values WBC 8.1 K/uL (4.8-10.8) 09/15/18 20:55 RBC 4.38 Mil/uL (4.40-5.90) L 09/15/18 20:55 Hgb 12.9 g/dL (12.0-18.0) 09/15/18 20:55 Hct 38.5 % (35.0-51.0) 09/15/18 20:55 MCV 88.1 fl (80.0-94.0) 09/15/18 20:55 MCH 29.4 pg (27.0-31.0) 09/15/18 20:55 MCHC 33.4 g/dL (33.0-37.0) 09/15/18 20:55 RDW 14.0 % (11.5-14.5) 09/15/18 20:55 Plt Count 246 K/uL (130-400) 09/15/18 20:55 MPV 8.8 fl (7.2-11.7) 09/15/18 20:55 Neut % (Auto) 55.3 % (50.0-75.0) 09/15/18 20:55 Lymph % (Auto) 32.0 % (20.0-40.0) 09/15/18 20:55 [place] % (Auto) 5.6 % (0.0-10.0) 09/15/18 20:55 Eos % (Auto) 6.0 % (0.0-4.0) H 09/15/18 20:55 Baso % (Auto) 1.1 % (0.0-2.0) 09/15/18 20:55 Neut # (Auto) 4.5 K/uL (1.8-7.0) 09/15/18 20:55 Lymph # (Auto) 2.6 K/uL (1.0-4.3) 09/15/18 20:55 [place] # (Auto) 0.5 K/uL (0.0-0.8) 09/15/18 20:55 Eos # (Auto) 0.5 K/uL (0.0-0.7) 09/15/18 20:55 Baso # (Auto) 0.1 K/uL (0.0-0.2) 09/15/18 20:55 PT 12.7 Seconds (9.8-13.1) 09/15/18 20:55 INR 1.1 09/15/18 20:55 APTT 31.7 Seconds (25.6-37.1) 09/15/18 20:55 Sodium 144 mmol/l (132-148) 09/15/18 20:55 Potassium 3.9 MMOL/L (3.6-5.0) 09/15/18 20:55 Chloride 105 mmol/L (98-107) 09/15/18 20:55 Carbon Dioxide 33 mmol/L (22-30) H 09/15/18 20:55 Anion Gap 10 (10-20) 09/15/18 20:55 BUN 17 mg/dl (9-20) 09/15/18 20:55 Creatinine 0.9 mg/dl (0.8-1.5) 09/15/18 20:55 Est GFR ( Amer) > 60 09/15/18 20:55 Est GFR (Non-Af Amer) > 60 09/15/18 20:55 Random Glucose 94 mg/dL (75-110) 09/15/18 20:55 Lactic Acid 0.7 MMOL/L (0.7-2.1) 09/15/18 20:55 Calcium 9.9 mg/dL (8.4-10.2) 09/15/18 20:55 Total Bilirubin 0.4 mg/dl (0.2-1.3) 09/15/18 20:55 AST 33 U/L (17-59) 09/15/18 20:55 ALT 22 U/L (21-72) 09/15/18 20:55 Alkaline Phosphatase 76 U/L (38-126) 09/15/18 20:55 Troponin I < 0.0120 ng/mL (0.00-0.120) 09/15/18 20:55 NT-Pro-B Natriuret Pep 39.4 pg/ml (0-900) 09/15/18 20:55 Total Protein 8.7 G/DL (6.3-8.2) H 09/15/18 20: Albumin 4.3 g/dL (3.5-5.0) 09/15/18 20: Globulin 4.4 gm/dL (2.2-3.9) H 09/15/18 20:55 Albumin/Globulin Ratio 1.0 (1.0-2.1) 09/15/18 20:55 Urine Color Yellow (YELLOW) 09/15/18 22:35 Urine Clarity Turbid (Clear) 09/15/18 22:35 Urine pH 5.0 (5.0-8.0) 09/15/18 22:35 Ur Specific [place] 1.016 (1.003-1.030) 09/15/18 22:35 Urine Protein 100 mg/dL (NEGATIVE) 09/15/18 22:35 Urine Glucose (UA) Neg mg/dL (Normal) 09/15/18 22:35 Urine Ketones Negative mg/dL (NEGATIVE) 09/15/18 22:35 Urine Blood Moderate (NEGATIVE) 09/15/18 22:35 Urine Nitrate Positive (NEGATIVE) H 09/15/18 22:35 Urine Bilirubin Negative (NEGATIVE) 09/15/18 22:35 Urine Urobilinogen 0.2-1.0 mg/dL (0.2-1.0) 09/15/18 22:35 Ur Leukocyte Esterase Large Rubén/uL (Negative) 09/15/18 22:35 Urine RBC (Auto) 33 /hpf (0-3) H 09/15/18 22:35 Urine WBC Clumps (Auto) Mod /hpf (NONE) H 09/15/18 22:35 Urine Microscopic WBC 1582 /hpf (0-5) H 09/15/18 22:35 Urine Bacteria Few (<OCC) H 09/15/18 22:35 Urine Yeast (Budding) Mod /hpf (NEGATIVE) H 09/15/18 22:35 C. difficile Ag & Toxin Negative (NEGATIVE) 09/15/18 21:12 Attending/Attestation - Attestation I have personally seen and examined this patient.: Yes I have fully participated in the care of the patient.: Yes I have reviewed all pertinent clinical information, including history, physical exam and plan: Yes Notes (Text): UTI RLE Cellulitis Parkinsons Pt is afebrile, no leukocytosis will d/c home on PO bactrim to cover for both UTI and Cellulitis, add Diflucan for yeast in Urine Evaluated by Neuro and rec to increase Sinemet dose Home RN and Home PT will ff up Urine c/s final result and will call pt if need for abx change
[2018-09-16] MEDS: ceFAZolin 1 GM in Sodium Chloride 0.9% 50 ML IVPB SCH ×2 (16:45→21:43)
[2018-09-17] MEDS: ceFAZolin 1 GM in Sodium Chloride 0.9% 50 ML IVPB SCH ×2 (03:52→09:42)
[2018-09-17 08:06] VITALS: BP 113/74; PULSE 70; RESP 20; TEMP 98.4; O2SAT 96
[2018-09-17] MEDS: Enoxaparin 40 mg Syringe SC SCH (09:39)
== END 2018-09-17 11:30 | disposition home or self-care (01) ==
LOC: H.ER 19:45 → INTOOBSV 22:54 → H.ERHOLD 22:54 → H.TEL 09-16 00:43
PROVIDERS: ADMIT Internal Medicine; ATTEND Internal Medicine
DX: L03.115 Cellulitis of right lower limb (principal); N39.0 Urinary tract infection, site not specified; M79.89 Other specified soft tissue disorders; R26.2 Difficulty in walking, not elsewhere classified; R60.9 Edema, unspecified; G20 Parkinson's disease; H54.61 Unqualified visual loss, right eye, normal vision left eye
CPT/HCPCS: 80053; 81003; 83605; 83880; 84484; 85025; 85610; 85730; 87040; 87045; 87086; 87230; 93970; 97162; 99285; G0378; G8978; G8979; J0690; J0696; J1650; J2543

== ENCOUNTER 2018-09-21 01:25 | Inpatient (IN) | payer MEDICARE ==
[2018-09-21] MEDS ORDERED: Sodium Chloride 0.9% 2,000 ML IV STA ×2 (02:03→02:06)
[2018-09-21 02:28] LABS: SQUAMOUS EPITHIAL 2 /hpf (0-5); URINE BACTERIA MOD (<OCC); URINE BILIRUBIN NEGATIVE (NEGATIVE); URINE BLOOD LARGE (NEGATIVE); URINE CLARITY CLOUDY (Clear); URINE COLOR AMBER (YELLOW); URINE GLUCOSE (UA) NEG (Normal); URINE LEUKOCYTE ESTERASE TRACE Leu/uL (Negative); URINE PROTEIN 100 mg/dL (NEGATIVE)
[2018-09-21] MEDS ORDERED: Meropenem 1 GM in Sodium Chloride 0.9% 100 ML IVPB ONE (02:35)
--- NOTE | 2018-09-21 02:52 | ED PDOC ---
Syncope/Near Syncope/Dizziness Time Seen by Provider: 09/21/18 01:59 Chief Complaint (Nursing): Weakness/Neurological Deficit Chief Complaint (Provider): Syncope/Near Syncope History Per: Patient, Family History/Exam Limitations: no limitations Onset/Duration Of Symptoms: Hrs Current Symptoms Are (Timing): Still Present Additional Complaint(s): 63 y/o male with a PMHx of Parkinson's Disease presents to the ED for evaluation of a near syncopal episode. Patient was recently admitted for a UTI and cellulitis. However, patient states he never filled Bactrim prescription upon discharge but microbiology indicates patient was resistant to macrobid. Patient's sister reports she found the patient on the floor where he was there for approximately three hours. Patient denies head injury. Sister believes patient still has a UTI. PMD: Dr. Samayoa at the [facility] Past Medical History Reviewed: Historical Data Vital Signs: Last Vital Signs Temp 101.7 F H 09/21/18 02:22 Pulse 118 H 09/21/18 01:32 Resp 20 09/21/18 01:32 BP 119/92 H 09/21/18 01:32 Pulse Ox 99 09/21/18 01:32 - Medical History PMH: Parkinson's Disease Denies: HIV, Chronic Kidney Disease - Surgical History Surgical History: No Surg Hx - Family History Family History: States: Unknown Family Hx - Home Medications Home Medications: Ambulatory Orders Medication Instructions Recorded RX: Carbidopa/Levodopa 25/100 mg 2 tab PO BID 09/21/18 [Sinemet] - Allergies Allergies/Adverse Reactions: Allergies Allergy/AdvReac Type Severity Reaction Status Date / Time No Known Allergies Allergy Verified 09/15/18 19:46 Review of Systems ROS Statement: Except As Marked, All Systems Reviewed And Found Negative Genitourinary Male: Positive for: Other (Possible UTI) Neurological: Positive for: Other (Symcope) Physical Exam - Reviewed Nursing Documentation Reviewed: Yes Vital Signs Reviewed: Yes - Physical Exam Appears: Positive for: No Acute Distress (resting tremor). Negative for: Well (chronically ill) Head Exam: Positive for: ATRAUMATIC, NORMOCEPHALIC Skin: Positive for: Normal Color, Warm, Dry Eye Exam: Positive for: Normal appearance, EOMI, PERRL Neck: Positive for: Normal, Painless ROM Cardiovascular/Chest: Positive for: Tachycardia Respiratory: Positive for: Normal Breath Sounds. Negative for: Respiratory Distress Gastrointestinal/Abdominal: Positive for: Normal Exam, Soft Back: Positive for: Normal Inspection. Negative for: L CVA Tenderness, R CVA Tenderness, Vertebral Tenderness Extremity: Positive for: Normal ROM. Negative for: Pedal Edema, Deformity Neurologic/Psych: Positive for: Alert, Oriented. Negative for: Motor/Sensory Deficits - Laboratory Results Result Diagrams: 09/21/18 02:45 09/21/18 02:45 - ECG O2 Sat by Pulse Oximetry: 99 (RA) Pulse Ox Interpretation: Normal Medical Decision Making Medical Decision Making: Time: 0245 A/P: 63 y/o male with a PMHx of Parkinson's Disease with a possible urosepsis -- Will initiate sepsis workup -- VBG -- CT Head w/o contrast -- EKG -- BMP -- CK-MB -- Magnesium -- Phosphorus -- CBC with Differentials -- PTT -- Prothrombin Time -- CXR Portable XR -- Merrem IV 1 gm Sodium Chloride 0.9% 100 ml IVPB -- Sodium Chloride IV 1000 mls/hr -- Sodium Chlotide IV 2000 mls/hr -- Typenol 650 mg PO -- Vancomycin Inj 1 gm Sodium Chloride 0.9% 250 ml IVPB -- Blood Culture -- Urine Culture -- Ring Facer -- Vital Signs Q15 -- Urinalysis Scribe Attestation: Documented by Ketty Tamayo, acting as a scribe for Wilder Banegas MD. Provider Scribe Attestation: All medical record entries made by the Scribe were at my direction and personally dictated by me. I have reviewed the chart and agree that the record accurately reflects my personal performance of the history, physical exam, medical decision making, and the department course for this patient. I have also personally directed, reviewed, and agree with the discharge instructions and disposition. Disposition - Clinical Impression Clinical Impression: UTI (urinary tract infection), Sepsis - Disposition Disposition Time: 03:00 Condition: GUARDED
[2018-09-21 02:57] LABS: BASO # 0.1 K/uL (0.0-0.2); BASO % 0.4 % (0.0-2.0); EOS % 0.1 % (0.0-4.0); HEMOGLOBIN 12.1 g/dL (12.0-18.0); LYMPH # 1.7 K/uL (1.0-4.3); LYMPH % 8.6 % (20.0-40.0); MEAN CELL VOLUME 87.6 fl (80.0-94.0); MEAN CORPUSCULAR HEMOGLOBIN 29.1 pg (27.0-31.0); MEAN CORPUSCULAR HGB CONC 33.2 g/dL (33.0-37.0); MEAN PLATELET VOLUME 8.7 fl (7.2-11.7); MONO # 0.5 K/uL (0.0-0.8); MONO % 2.7 % (0.0-10.0); NEUT # 17.8 K/uL (1.8-7.0); NEUT % 88.2 % (50.0-75.0); PLATELET COUNT 221 K/uL (130-400); RBC 4.16 Mil/uL (4.40-5.90); RED CELL DISTRIBUTION WIDTH 13.8 % (11.5-14.5); WHITE BLOOD COUNT 20.2 K/uL (4.8-10.8)
[2018-09-21 03:01] LABS: INR 1.5; PROTHROMBIN TIME 16.8 Seconds (9.8-13.1)
[2018-09-21 03:04] LABS: PARTIAL THROMBOPLASTIN TIME 37.9 Seconds (25.6-37.1)
[2018-09-21 03:05] LABS: BLOOD UREA NITROGEN 18 mg/dl (9-20); CALCIUM 9.5 mg/dL (8.4-10.2); GFR NON-AFRICAN AMERICAN > 60
[2018-09-21 03:07] LABS: VENOUS BLOOD GAS BASE EXCESS 5.8 mmol/L (0.0-2.0); VENOUS BLOOD GAS PCO2 44 mmHg (40-60); VENOUS BLOOD GAS PO2 22 mm/Hg (30-55); VENOUS BLOOD PH 7.45 (7.32-7.43)
[2018-09-21] MEDS ORDERED: Vancomycin 1 g Inj ONE (03:14)
[2018-09-21 04:00] LABS: BANDS 5 % (0-2); LYMPHOCYTE 9 % (20-50); MONOCYTE 3 % (0-10); NEUTROPHIL 81 % (42-75); PLATELET ESTIMATE NORMAL (NORMAL); REACTIVE LYMPHOCYTES 2 % (0-0); TOTAL CELLS COUNTED 100
[2018-09-21 04:01] LABS: PLATELET CLUMPS PRESENT; SPHEROCYTES SLIGHT
[2018-09-21 04:03] LABS: SMUDGE CELLS PRESENT
--- NOTE | 2018-09-21 07:41 | CP.PCM.HP ---
History of Present Illness - History of Present Illness History of Present Illness: CC: Found on the Floor History of {Present Illness: Patient Poor Historian A 63 y/o male with a PMHx of Parkinson's Disease presents to the ED for evaluation a fall and feeling of passing out. Patient was recently admitted for a UTI and cellulitis. However, patient states he never filled Bactrim prescription upon discharge but microbiology indicates patient was resistant to macrobid. Patient's sister reports she found the patient on the floor where he was there for approximately three hours. Patient denies head injury. Sister mary higgins patient still has a UTI. Present on Admission - Present on Admission Any Indicators Present on Admission: No Review of Systems - Review of Systems All systems: reviewed and no additional remarkable complaints except Review of Systems: As per HPI Past Patient History - Past Medical History & Family History Past Medical History?: Yes Past Family History: Reviewed and not pertinent - Past Social History Smoking Status: Never Smoked Alcohol: None Drugs: Denies - CARDIAC Hx Cardiac Disorders: No - PULMONARY Hx Respiratory Disorders: No - NEUROLOGICAL Hx Parkinson's Disease: Yes - HEENT Hx HEENT Problems: Yes - RENAL Hx Chronic Kidney Disease: No - ENDOCRINE/METABOLIC Hx Endocrine Disorders: No - HEMATOLOGICAL/ONCOLOGICAL Hx Human Immunodeficiency Virus (HIV): No - INTEGUMENTARY Hx Dermatological Problems: No - MUSCULOSKELETAL/RHEUMATOLOGICAL Hx Musculoskeletal Disorders: No - GASTROINTESTINAL Hx Gastrointestinal Disorders: No - GENITOURINARY/GYNECOLOGICAL Hx Genitourinary Disorders: No - PSYCHIATRIC Hx Psychophysiologic Disorder: No - SURGICAL HISTORY Hx Surgeries: Yes Hx Eye Surgery: Yes (right cornea) - ANESTHESIA Hx Anesthesia: Yes Hx Anesthesia Reactions: No Meds Allergies/Adverse Reactions: Allergies Allergy/AdvReac Type Severity Reaction Status Date / Time No Known Allergies Allergy Verified 09/15/18 19:46 Physical Exam - Constitutional Appears: No Acute Distress, Chronically Ill - Head Exam Head Exam: ATRAUMATIC, NORMAL INSPECTION, NORMOCEPHALIC - Eye Exam Eye Exam: EOMI, Normal appearance, PERRL Pupil Exam: NORMAL ACCOMODATION, PERRL - ENT Exam ENT Exam: Mucous Membranes Moist, Normal Exam - Neck Exam Neck exam: Positive for: Normal Inspection - Respiratory Exam Respiratory Exam: Clear to Auscultation Bilateral, NORMAL BREATHING PATTERN - Cardiovascular Exam Cardiovascular Exam: REGULAR RHYTHM, +S1, +S2 - GI/Abdominal Exam GI & Abdominal Exam: Normal Bowel Sounds, Soft. absent: Tenderness - Extremities Exam Extremities exam: Positive for: pedal edema Additional comments: Leg Swelling R>L with chronic Changes. +Tender and erythematous right leg also - Back Exam Back exam: NORMAL INSPECTION - Neurological Exam Neurological exam: Alert, CN II-XII Intact, Normal Gait, Reflexes Normal Additional comments: Tremors at rest - Psychiatric Exam Psychiatric exam: Normal Affect, Normal Mood - Skin Skin Exam: Dry, Intact, Normal Color, Warm Results - Vital Signs Recent Vital Signs: Last Vital Signs Temp 100.5 F H 09/21/18 06:25 Pulse 106 H 09/21/18 06:25 Resp 18 09/21/18 06:25 BP 102/66 09/21/18 06:25 Pulse Ox 99 09/21/18 07:35 - Labs Result Diagrams: 09/23/18 04:25 09/23/18 04:25 Labs: Laboratory Results - last 24 hr 09/21/18 09/21/18 09/21/18 02:00 02:45 02:45 WBC 20.2 H D RBC 4.16 L Hgb 12.1 Hct 36.4 MCV 87.6 MCH 29.1 MCHC 33.2 RDW 13.8 Plt Count 221 MPV 8.7 Neut % (Auto) 88.2 H Lymph % (Auto) 8.6 L Luna % (Auto) 2.7 Eos % (Auto) 0.1 Baso % (Auto) 0.4 Neut # (Auto) 17.8 H Lymph # (Auto) 1.7 Luna # (Auto) 0.5 Eos # (Auto) 0.0 Baso # (Auto) 0.1 Neutrophils % (Manual) 81 H Band Neutrophils % 5 H Lymphocytes % (Manual) 9 L Reactive Lymphs % 2 H Monocytes % (Manual) 3 Smudge Cells Present Platelet Estimate Normal Plt Clumps, EDTA Present Spherocytes Slight PT INR APTT pO2 VBG pH VBG pCO2 VBG HCO3 VBG Total CO2 VBG O2 Sat (Calc) VBG Base Excess VBG Potassium Glucose Lactate FiO2 Sodium 140 Potassium 4.1 Chloride 102 Carbon Dioxide 28 Anion Gap 14 BUN 18 Creatinine 0.9 Est GFR ( Amer) > 60 Est GFR (Non-Af Amer) > 60 Random Glucose 105 Calcium 9.5 Phosphorus 1.9 L Magnesium 1.6 CK-MB (Mass) Venous Blood Potassium Urine Color Edna Urine Clarity Cloudy Urine pH 5.0 Ur Specific [place] 1.021 Urine Protein 100 Urine Glucose (UA) Neg Urine Ketones Negative Urine Blood Large Urine Nitrate Positive H Urine Bilirubin Negative Urine Urobilinogen 2.0 Ur Leukocyte Esterase Trace Urine RBC (Auto) 34 H Urine Microscopic WBC 614 H Ur Squamous Epith Cells 2 Urine Bacteria Mod H 09/21/18 09/21/18 09/21/18 02:45 03:03 03:11 WBC RBC Hgb Hct MCV MCH MCHC RDW Plt Count MPV Neut % (Auto) Lymph % (Auto) Luna % (Auto) Eos % (Auto) Baso % (Auto) Neut # (Auto) Lymph # (Auto) Luna # (Auto) Eos # (Auto) Baso # (Auto) Neutrophils % (Manual) Band Neutrophils % Lymphocytes % (Manual) Reactive Lymphs % Monocytes % (Manual) Smudge Cells Platelet Estimate Plt Clumps, EDTA Spherocytes PT 16.8 H INR 1.5 APTT 37.9 H pO2 22 L VBG pH 7.45 H VBG pCO2 44 VBG HCO3 27.9 VBG Total CO2 32.0 H VBG O2 Sat (Calc) 43.1 VBG Base Excess 5.8 H VBG Potassium 3.8 Glucose 105 Lactate 1.1 FiO2 21.0 Sodium 129.0 L Potassium Chloride 104.0 Carbon Dioxide Anion Gap BUN Creatinine Est GFR ( Amer) Est GFR (Non-Af Amer) Random Glucose Calcium Phosphorus Magnesium CK-MB (Mass) 13.1 H Venous Blood Potassium 3.8 Urine Color Urine Clarity Urine pH Ur Specific [place] Urine Protein Urine Glucose (UA) Urine Ketones Urine Blood Urine Nitrate Urine Bilirubin Urine Urobilinogen Ur Leukocyte Esterase Urine RBC (Auto) Urine Microscopic WBC Ur Squamous Epith Cells Urine Bacteria - Imaging and Cardiology Chest x-ray Status: Report reviewed by me Additional comment: No Active Disease CT scan - head Status: Report reviewed by me Additional comment: No Acute finding Assessment & Plan (1) Sepsis secondary to UTI Assessment and Plan: and Leg Cellulitis IVF IV Vancomycin and Merem Blood and urine cultures ID Consult Status: Acute (2) Parkinsonism Status: Chronic Comment: Continue senemet (3) DVT prophylaxis Status: Inactive
[2018-09-21] MEDS: Sodium Chloride 0.9% 1,000 ML IV SCH ×2 (09:15→16:30)
--- NOTE | 2018-09-21 10:31 | RAD ---
Date of service: 09/21/2018 HISTORY: tachycardia, sepsis COMPARISON: Chest radiograph dated 03/31/2012 FINDINGS: LUNGS: No active pulmonary disease. PLEURA: No significant pleural effusion identified, no pneumothorax apparent. CARDIOVASCULAR: Aortic atherosclerotic calcifications. Normal cardiac size. No pulmonary vascular congestion. OSSEOUS STRUCTURES: Unchanged. VISUALIZED UPPER ABDOMEN: Normal. OTHER FINDINGS: None. IMPRESSION: No active disease.
--- NOTE | 2018-09-21 10:34 | CT ---
Date of service: 09/21/2018 PROCEDURE: CT HEAD WITHOUT CONTRAST. HISTORY: found on floor COMPARISON: CT head dated 03/14/2011. TECHNIQUE: Axial computed tomography images were obtained through the head/brain without intravenous contrast. Radiation dose: Total exam DLP = 917.53 mGy-cm. This CT exam was performed using one or more of the following dose reduction techniques: Automated exposure control, adjustment of the mA and/or kV according to patient size, and/or use of iterative reconstruction technique. FINDINGS: HEMORRHAGE: No intracranial hemorrhage. BRAIN: No mass effect or edema. Mild atrophy. Chronic microvascular ischemic changes. VENTRICLES: Unremarkable. No hydrocephalus. CALVARIUM: Unremarkable. PARANASAL SINUSES: Mild bilateral ethmoid air cell opacification. MASTOID AIR CELLS: Unremarkable as visualized. No inflammatory changes. OTHER FINDINGS: Right phthisis bulbi. IMPRESSION: No acute intracranial pathology. Mild bilateral ethmoid air cell sinus disease.
[2018-09-21 11:13] LABS: SQUAMOUS EPITHIAL 2 /hpf (0-5); URINE BACTERIA OCC (<OCC); URINE BILIRUBIN NEGATIVE (NEGATIVE); URINE BLOOD LARGE (NEGATIVE); URINE CLARITY TURBID (Clear); URINE COLOR AMBER (YELLOW); URINE GLUCOSE (UA) NEG (Normal); URINE LEUKOCYTE ESTERASE TRACE Leu/uL (Negative); URINE PROTEIN 100 mg/dL (NEGATIVE); WBC CLUMPS MANY /hpf
[2018-09-21] MEDS: Meropenem 500 MG in Sodium Chloride 0.9% 100 ML IVPB SCH ×2 (11:14→16:26)
[2018-09-21] MEDS: Enoxaparin 40 mg Syringe SC SCH (11:14)
--- NOTE | 2018-09-21 16:49 | CARD ---
APPROVED REPORT Date of service: 09/21/2018 EKG Measurement Heart [id number] <Conclusion> Baseline artifact, likely sinus tachycardia with occasional premature ventricular complexes Inferior infarct, age undetermined Abnormal ECG
--- NOTE | 2018-09-21 16:52 | CARD ---
APPROVED REPORT Date of service: 09/21/2018 EKG Measurement Heart [id number] <Conclusion> Baseline artifact, likely sinus tachycardia with occasional premature ventricular complexes Inferior infarct, age undetermined Abnormal ECG
[2018-09-22] MEDS: Meropenem 500 MG in Sodium Chloride 0.9% 100 ML IVPB SCH ×3 (00:14→16:08)
[2018-09-22] MEDS: Sodium Chloride 0.9% 1,000 ML IV SCH (03:15)
[2018-09-22] MEDS: Enoxaparin 40 mg Syringe SC SCH (08:48)
--- NOTE | 2018-09-22 12:38 | CP.PCM.CON ---
History of Present Illness - History of Present Illness History of Present Illness: 63 y/o male with a PMHx of Parkinson's Disease presents to the ED for evaluation of a near syncopal episode. Patient's sister reports she found the patient on the floor where he was there for approximately three hours. Patient was recently treated here for UTI and cellulitis - Medical History PMH: Parkinson's Disease , blind right eye Denies: HIV, Chronic Kidney Disease Review of Systems - Review of Systems All systems: reviewed and no additional remarkable complaints except - Constitutional Constitutional: As Per HPI - EENT Eyes: absent: As Per HPI, Blind Spots, Blurred Vision, Change in Vision, Decreased Night Vision, Diplopia, Discharge, Dry Eye, Exophthalmos, Floaters, Irritation, Itchy Eyes, Loss of Peripheral Vision, Pain, Photophobia, Requires Corrective Lenses, Sees Flashes, Spots in Vision, Tunnel Vision, Other Visual Disturbances, Loss of Vision, Other Ears: absent: As Per HPI, Decreased Hearing, Ear Discharge, Ear Pain, Tinnitus, Abnormal Hearing, Disequilibrium, Dizziness, Other Nose/Mouth/Throat: absent: As Per HPI, Epistaxis, Nasal Congestion, Nasal Discharge, Nasal Obstruction, Nasal Trauma, Nose Pain, Post Nasal Drip, Sinus Pain, Sinus Pressure, Bleeding Gums, Change in Voice, Dental Pain, Dry Mouth, Dysphagia, Halitosis, Hoarsness, Lip Swelling, Mouth Lesions, Mouth Pain, Odynophagia, Sore Throat, Throat Swelling, Tongue Swelling, Facial Pain, Neck Pain, Neck Mass, Other - Cardiovascular Cardiovascular: As Per HPI - Respiratory Respiratory: absent: As Per HPI, Cough, Dyspnea, Hemoptysis, Dyspnea on Exertion, Wheezing, Snoring, Stridor, Pain on Inspiration, Chest Congestion, Excessive Mucous Production, Change in Mucous Color, Pain with Coughing, Other - Gastrointestinal Gastrointestinal: absent: As Per HPI, Abdominal Pain, Belching, Bloating, Change in Bowel Habits, Change in Stool Character, Coffee Ground Emesis, Constipation, Cramping, Diarrhea, Dyspepsia, Dysphagia, Early Satiety, Excessive Flatus, Fecal Incontinence, Heartburn, Hematemesis, Hematochezia, Loose Stools, Melena, Nausea, Odynophagia, Temesmus, Vomiting, Other - Genitourinary Genitourinary: As Per HPI - Musculoskeletal Musculoskeletal: As Per HPI - Integumentary Integumentary: As Per HPI - Neurological Neurological: As Per HPI - Psychiatric Psychiatric: absent: As Per HPI, Abnormal Sleep Pattern, Anhedonia, Anxiety, Auditory Hallucinations, Behavioral Changes, Change in Appetite, Change in Libido, Confusion, Depression, Difficulty Concentrating, Hallucinations, Homicidal Ideation, Hopelessness, Irritability, Memory Loss, Mood Swings, Panic Attacks, Paranoia, Suicidal Ideation, Visual Hallucinations, Tactile Hallucinations, Other - Endocrine Endocrine: absent: As Per HPI, Change in Body Appearance, Change in Libido, Cold Intolorance, Deepening of Voice, Excessive Sweating, Fatigue, Flushing, Heat Intolorance, Increase in Ring/Shoe/Hat Size, Palpitations, Polydipsia, Polyphagia, Polyuria, Other - Hematologic/Lymphatic Hematologic: absent: As Per HPI, Easy Bleeding, Easy Bruising, Lymphadenopathy, Other Past Patient History - Past Medical History & Family History Past Medical History?: Yes - Past Social History Smoking Status: Never Smoked - CARDIAC Hx Cardiac Disorders: No - PULMONARY Hx Respiratory Disorders: No - NEUROLOGICAL Hx Parkinson's Disease: Yes - HEENT Hx HEENT Problems: Yes - RENAL Hx Chronic Kidney Disease: No - ENDOCRINE/METABOLIC Hx Endocrine Disorders: No - HEMATOLOGICAL/ONCOLOGICAL Hx Blood Disorders: No Hx Human Immunodeficiency Virus (HIV): No - INTEGUMENTARY Hx Dermatological Problems: No - MUSCULOSKELETAL/RHEUMATOLOGICAL Hx Musculoskeletal Disorders: No Hx Falls: No - GASTROINTESTINAL Hx Gastrointestinal Disorders: No - GENITOURINARY/GYNECOLOGICAL Hx Genitourinary Disorders: No - PSYCHIATRIC Hx Psychophysiologic Disorder: No Hx Substance Use: No - SURGICAL HISTORY Hx Surgeries: Yes Hx Eye Surgery: Yes (right cornea) - ANESTHESIA Hx Anesthesia: Yes Hx Anesthesia Reactions: No Hx Malignant Hyperthermia: No Has any member of the family had a problem w/ anesthesia?: No Meds Allergies/Adverse Reactions: Allergies Allergy/AdvReac Type Severity Reaction Status Date / Time No Known Allergies Allergy Verified 09/15/18 19:46 - Medications Medications: Current Medications Acetaminophen (Tylenol 325mg Tab) 650 mg PO Q4 PRN PRN Reason: Fever >101.0 Carbidopa/Levodopa (Sinemet) 2 tab PO BID [facility] Last Admin: 09/22/18 08:49 Dose: 2 tab Enoxaparin Sodium (Lovenox) 40 mg SC DAILY [facility]; Protocol Last Admin: 09/22/18 08:48 Dose: 40 mg Meropenem 500 mg/ Sodium (Chloride) 100 mls @ 100 mls/hr IVPB Q8 [facility]; Protocol Last Admin: 09/22/18 08:48 Dose: 100 mls/hr Vancomycin HCl 1 gm/ Sodium (Chloride) 250 mls @ 166.667 mls/hr IVPB Q12 [facility]; Protocol Last Admin: 09/22/18 08:49 Dose: 166.667 mls/hr Physical Exam - Constitutional Appears: Non-toxic, No Acute Distress, Confused, Chronically Ill - Head Exam Head Exam: ATRAUMATIC, NORMAL INSPECTION, NORMOCEPHALIC - Eye Exam Eye Exam: absent: Scleral icterus Pupil Exam: absent: NORMAL ACCOMODATION Additional comments: blind right eye, + strabismus - ENT Exam ENT Exam: Mucous Membranes Dry - Neck Exam Neck exam: Negative for: Lymphadenopathy - Respiratory Exam Respiratory Exam: Decreased Breath Sounds, Prolonged Expiratory Phase, Rhonchi - Cardiovascular Exam Cardiovascular Exam: REGULAR RHYTHM, +S1, +S2 - GI/Abdominal Exam GI & Abdominal Exam: Diminished Bowel Sounds, Soft. absent: Tenderness - Rectal Exam Rectal Exam: Deferred - Exam Exam: NORMAL INSPECTION - Extremities Exam Extremities exam: Positive for: calf tenderness, pedal edema, tenderness, pedal pulses present Additional comments: right leg/ calf swollen warm - Back Exam Back exam: absent: CVA tenderness (L), CVA tenderness (R) - Neurological Exam Neurological exam: Alert, CN II-XII Intact, Oriented x3, Reflexes Normal - Psychiatric Exam Psychiatric exam: Normal Mood - Skin Skin Exam: Dry, Intact Results - Vital Signs Recent Vital Signs: Last Vital Signs Temp 98.6 F 09/22/18 08:00 Pulse 99 H 09/22/18 08:42 Resp 18 09/22/18 08:00 BP 106/69 09/22/18 08:00 Pulse Ox 95 09/22/18 08:00 - Labs Result Diagrams: 09/21/18 02:45 09/21/18 02:45 Labs: Laboratory Results - last 24 hr 09/21/18 13:20 Troponin I < 0.0120 Assessment & Plan (1) Sepsis Status: Acute (2) UTI (urinary tract infection) Status: Acute (3) Cellulitis of right lower extremity Status: Acute (4) Parkinsonism Status: Acute - Assessment and Plan (Free Text) Assessment: IV Vanco/ merrem in progress - await cultures will check venous doppler May benefit from PT eval/ Neuro and ophthalmology eval as out pt
[2018-09-22] MEDS: Pantoprazole 40 mg EC Tab PO SCH (16:08)
--- NOTE | 2018-09-22 17:17 | US ---
Date of service: 09/22/2018 PROCEDURE: Bilateral lower extremity venous duplex Doppler. HISTORY: r/o dvt RIGHT LEG COMPARISON: None available. TECHNIQUE: Bilateral common femoral, superficial femoral, popliteal and posterior tibial veins were evaluated. Flow was assessed with color Doppler, compressibility, assessment of phasic flow and augmentation response. FINDINGS: COMMON FEMORAL VEIN: Right CFV: Unremarkable. Left CFV: Unremarkable. SUPERFICIAL FEMORAL VEIN: Right SFV: Unremarkable. Left SFV: Unremarkable. POPLITEAL VEIN: Right Popliteal: Unremarkable. Left Popliteal: Unremarkable. POSTERIOR TIBIAL VEIN: Right PTV: Not well-visualized due to overlying edema Left PTV: Well-visualized due to overlying edema OTHER FINDINGS: None. IMPRESSION: No evidence of deep venous thrombosis.
--- NOTE | 2018-09-22 22:33 | CP.PCM.PN ---
Subjective - Date & Time of Evaluation Date of Evaluation: 09/22/18 Time of Evaluation: 15:40 Objective - Vital Signs/Intake and Output Vital Signs (last 24 hours): Temp Pulse Resp BP Pulse Ox 101.7 F H 85 18 135/74 98 09/22/18 20:43 09/22/18 12:39 09/22/18 12:39 09/22/18 12:39 09/22/18 12:39 Intake and Output: 09/22/18 09/23/18 18:59 06:59 Intake Total 1650 Output Total 600 Balance 1050 - Medications Medications: Current Medications Acetaminophen (Tylenol 325mg Tab) 650 mg PO Q4 PRN PRN Reason: Fever >101.0 Last Admin: 09/22/18 20:43 Dose: 650 mg Carbidopa/Levodopa (Sinemet) 2 tab PO BID [facility] Last Admin: 09/22/18 16:08 Dose: 2 tab Enoxaparin Sodium (Lovenox) 40 mg SC DAILY [facility]; Protocol Last Admin: 09/22/18 08:48 Dose: 40 mg Meropenem 500 mg/ Sodium (Chloride) 100 mls @ 100 mls/hr IVPB Q8 [facility]; Protocol Last Admin: 09/22/18 16:08 Dose: 100 mls/hr Vancomycin HCl 1 gm/ Sodium (Chloride) 250 mls @ 166.667 mls/hr IVPB Q12 [facility]; Protocol Last Admin: 09/22/18 20:58 Dose: 166.667 mls/hr Pantoprazole Sodium (Protonix Ec Tab) 40 mg PO DAILY [facility] Last Admin: 09/22/18 16:08 Dose: 40 mg - Labs Labs: 09/21/18 02:45 09/21/18 02:45 PT 16.8 Seconds (9.8-13.1) H 09/21/18 02:45 INR 1.5 09/21/18 02:45 APTT 37.9 Seconds (25.6-37.1) H 09/21/18 02:45
[2018-09-23] MEDS: Meropenem 500 MG in Sodium Chloride 0.9% 100 ML IVPB SCH ×3 (00:17→17:32)
[2018-09-23 05:28] LABS: BASO % 0.7 % (0.0-2.0); EOS # 0.2 K/uL (0.0-0.7); EOS % 3.3 % (0.0-4.0); LYMPH % 16.4 % (20.0-40.0); MEAN CELL VOLUME 87.3 fl (80.0-94.0); MEAN CORPUSCULAR HEMOGLOBIN 29.9 pg (27.0-31.0); MEAN CORPUSCULAR HGB CONC 34.2 g/dL (33.0-37.0); MONO # 0.4 K/uL (0.0-0.8); MONO % 6.2 % (0.0-10.0); NEUT # 4.6 K/uL (1.8-7.0); NEUT % 73.4 % (50.0-75.0); RBC 3.67 Mil/uL (4.40-5.90); RED CELL DISTRIBUTION WIDTH 14.1 % (11.5-14.5); WHITE BLOOD COUNT 6.3 K/uL (4.8-10.8)
[2018-09-23 06:13] LABS: ALB/GLOB RATIO 0.8 (1.0-2.1); ALBUMIN 2.7 g/dL (3.5-5.0); ALT/SGPT 36 U/L (21-72); AST/SGOT 57 U/L (17-59); BLOOD UREA NITROGEN 11 mg/dl (9-20); CALCIUM 8.4 mg/dL (8.4-10.2); GFR NON-AFRICAN AMERICAN > 60
[2018-09-23] MEDS: Pantoprazole 40 mg EC Tab PO SCH (09:24)
[2018-09-23] MEDS: Enoxaparin 40 mg Syringe SC SCH (09:24)
--- NOTE | 2018-09-23 11:10 | CP.PCM.PN ---
Subjective - Date & Time of Evaluation Date of Evaluation: 09/23/18 Time of Evaluation: 07:00 - Subjective Subjective: weak nad esbl + cont rx Objective - Vital Signs/Intake and Output Vital Signs (last 24 hours): Temp Pulse Resp BP Pulse Ox 98.9 F 87 18 135/83 95 09/23/18 08:29 09/23/18 08:29 09/23/18 08:29 09/23/18 08:29 09/23/18 08:29 - Medications Medications: Current Medications Acetaminophen (Tylenol 325mg Tab) 650 mg PO Q4 PRN PRN Reason: Fever >101.0 Last Admin: 09/22/18 20:43 Dose: 650 mg Carbidopa/Levodopa (Sinemet) 2 tab PO BID [facility] Last Admin: 09/23/18 09:24 Dose: 2 tab Enoxaparin Sodium (Lovenox) 40 mg SC DAILY [facility]; Protocol Last Admin: 09/23/18 09:24 Dose: 40 mg Meropenem 500 mg/ Sodium (Chloride) 100 mls @ 100 mls/hr IVPB Q8 [facility]; Protocol Last Admin: 09/23/18 09:37 Dose: 100 mls/hr Vancomycin HCl 1 gm/ Sodium (Chloride) 250 mls @ 166.667 mls/hr IVPB Q12 [facility]; Protocol Last Admin: 09/23/18 09:23 Dose: 166.667 mls/hr Lactobacillus Acidophilus (Bacid Acidophilus) 1 cap PO BID [facility] Pantoprazole Sodium (Protonix Ec Tab) 40 mg PO DAILY [facility] Last Admin: 09/23/18 09:24 Dose: 40 mg - Labs Labs: 09/23/18 04:25 09/23/18 04:25 PT 16.8 Seconds (9.8-13.1) H 09/21/18 02:45 INR 1.5 09/21/18 02:45 APTT 37.9 Seconds (25.6-37.1) H 09/21/18 02:45 - Constitutional Appears: Non-toxic, Chronically Ill - Head Exam Head Exam: NORMOCEPHALIC - Eye Exam Eye Exam: PERRL - ENT Exam ENT Exam: Mucous Membranes Dry - Neck Exam Neck Exam: absent: Lymphadenopathy - Respiratory Exam Respiratory Exam: Decreased Breath Sounds - Cardiovascular Exam Cardiovascular Exam: REGULAR RHYTHM - GI/Abdominal Exam GI & Abdominal Exam: Distended, Soft Assessment and Plan (1) Sepsis Status: Acute (2) UTI (urinary tract infection) Status: Acute (3) Cellulitis of right lower extremity Status: Acute (4) Parkinsonism Status: Chronic
[2018-09-23] MEDS ORDERED: Potassium Chloride 20 mEq ER Tab PO ONE (14:00)
[2018-09-23] MEDS: Lactobacillus Acidophilus 500 MU Cap PO SCH ×2 (14:40→17:32)
--- NOTE | 2018-09-23 23:04 | CP.PCM.PN ---
Subjective - Date & Time of Evaluation Date of Evaluation: 09/23/18 Time of Evaluation: 07:25 - Subjective Subjective: Seen and examined at the bed side. Patient states feeling Better. Urine Culture grew E. Coli with ESBL+, and D/W ID, and patient will require a 2weeks Iv Merem. Denies fever or chills. Objective - Vital Signs/Intake and Output Vital Signs (last 24 hours): Temp Pulse Resp BP Pulse Ox 99.8 F H 103 H 20 122/78 96 09/23/18 19:25 09/23/18 19:25 09/23/18 19:25 09/23/18 19:25 09/23/18 19:25 - Medications Medications: Current Medications Acetaminophen (Tylenol 325mg Tab) 650 mg PO Q4 PRN PRN Reason: Fever >101.0 Last Admin: 09/22/18 20:43 Dose: 650 mg Carbidopa/Levodopa (Sinemet) 2 tab PO BID [facility] Last Admin: 09/23/18 17:32 Dose: 2 tab Enoxaparin Sodium (Lovenox) 40 mg SC DAILY [facility]; Protocol Last Admin: 09/23/18 09:24 Dose: 40 mg Meropenem 500 mg/ Sodium (Chloride) 100 mls @ 100 mls/hr IVPB Q8 [facility]; Protocol Last Admin: 09/23/18 17:32 Dose: 100 mls/hr Vancomycin HCl 1 gm/ Sodium (Chloride) 250 mls @ 166.667 mls/hr IVPB Q12 [facility]; Protocol Last Admin: 09/23/18 22:22 Dose: 166.667 mls/hr Lactobacillus Acidophilus (Bacid Acidophilus) 1 cap PO BID [facility] Last Admin: 09/23/18 17:32 Dose: 1 cap Pantoprazole Sodium (Protonix Ec Tab) 40 mg PO DAILY [facility] Last Admin: 09/23/18 09:24 Dose: 40 mg - Labs Labs: 09/23/18 04:25 09/23/18 04:25 PT 16.8 Seconds (9.8-13.1) H 09/21/18 02:45 INR 1.5 09/21/18 02:45 APTT 37.9 Seconds (25.6-37.1) H 09/21/18 02:45 Assessment and Plan (1) Sepsis secondary to UTI Assessment & Plan: ESBL+ E.coli from the Urine Leg Cellulitis Continue IV Merem Evaluate the patient for TCU Blood Cultures Negative Venous Doppler- Negative DVT Status: Acute (2) Parkinsonism Assessment & Plan: Continue Home medication Status: Chronic (3) DVT prophylaxis Status: Inactive
[2018-09-24] MEDS: Meropenem 500 MG in Sodium Chloride 0.9% 100 ML IVPB SCH ×2 (00:30→09:06)
[2018-09-24 05:43] LABS: BASO % 0.7 % (0.0-2.0); EOS # 0.3 K/uL (0.0-0.7); EOS % 5.6 % (0.0-4.0); HEMOGLOBIN 10.9 g/dL (12.0-18.0); LYMPH # 1.8 K/uL (1.0-4.3); LYMPH % 29.3 % (20.0-40.0); MEAN CORPUSCULAR HEMOGLOBIN 29.5 pg (27.0-31.0); MEAN PLATELET VOLUME 8.5 fl (7.2-11.7); MONO # 0.6 K/uL (0.0-0.8); MONO % 9.2 % (0.0-10.0); NEUT # 3.3 K/uL (1.8-7.0); NEUT % 55.2 % (50.0-75.0); NRBC % 0.1 % (0.0-0.0); RBC 3.71 Mil/uL (4.40-5.90); RED CELL DISTRIBUTION WIDTH 13.7 % (11.5-14.5)
[2018-09-24 05:52] LABS: ALB/GLOB RATIO 0.8 (1.0-2.1); ALBUMIN 2.7 g/dL (3.5-5.0); ALT/SGPT 34 U/L (21-72); AST/SGOT 46 U/L (17-59); BLOOD UREA NITROGEN 6 mg/dl (9-20); CALCIUM 8.3 mg/dL (8.4-10.2); GFR NON-AFRICAN AMERICAN > 60
[2018-09-24] MEDS ORDERED: Potassium Chloride 20 mEq ER Tab PO ONE (08:20)
[2018-09-24 08:31] VITALS: RESP 20
[2018-09-24] MEDS ORDERED: Magnesium Oxide 400 mg Tab UD PO SCH (09:00)
[2018-09-24] MEDS: Lactobacillus Acidophilus 500 MU Cap PO SCH (09:02)
[2018-09-24] MEDS: Pantoprazole 40 mg EC Tab PO SCH (09:02)
[2018-09-24] MEDS: Enoxaparin 40 mg Syringe SC SCH (09:03)
--- NOTE | 2018-09-24 12:02 | CP.PCM.PN ---
Subjective - Date & Time of Evaluation Date of Evaluation: 09/24/18 Time of Evaluation: 11:10 Objective - Vital Signs/Intake and Output Vital Signs (last 24 hours): Temp Pulse Resp BP Pulse Ox 98.3 F 70 20 128/75 94 L 09/24/18 08:31 09/24/18 08:31 09/24/18 08:31 09/24/18 08:31 09/24/18 08:31 - Medications Medications: Current Medications Acetaminophen (Tylenol 325mg Tab) 650 mg PO Q4 PRN PRN Reason: Fever >101.0 Last Admin: 09/22/18 20:43 Dose: 650 mg Carbidopa/Levodopa (Sinemet) 2 tab PO BID [facility] Last Admin: 09/24/18 09:02 Dose: 2 tab Enoxaparin Sodium (Lovenox) 40 mg SC DAILY [facility]; Protocol Last Admin: 09/24/18 09:03 Dose: 40 mg Meropenem 500 mg/ Sodium (Chloride) 100 mls @ 100 mls/hr IVPB Q8 [facility]; Protocol Last Admin: 09/24/18 09:06 Dose: 100 mls/hr Vancomycin HCl 1 gm/ Sodium (Chloride) 250 mls @ 166.667 mls/hr IVPB Q12 [facility]; Protocol Last Admin: 09/24/18 09:05 Dose: 166.667 mls/hr Lactobacillus Acidophilus (Bacid Acidophilus) 1 cap PO BID [facility] Last Admin: 09/24/18 09:02 Dose: 1 cap Magnesium Oxide (Mag-Ox) 400 mg PO DAILY [facility] Pantoprazole Sodium (Protonix Ec Tab) 40 mg PO DAILY [facility] Last Admin: 09/24/18 09:02 Dose: 40 mg - Labs Labs: 09/24/18 05:15 09/24/18 05:15 PT 16.8 Seconds (9.8-13.1) H 09/21/18 02:45 INR 1.5 09/21/18 02:45 APTT 37.9 Seconds (25.6-37.1) H 09/21/18 02:45 Assessment and Plan (1) Sepsis secondary to UTI Status: Acute (2) Parkinsonism Status: Chronic (3) DVT prophylaxis Status: Inactive
[2018-09-24 12:24] VITALS: BP 127/84; PULSE 89; TEMP 97.9; O2SAT 98
--- NOTE | 2018-09-24 12:55 | CP.PCM.PN ---
Subjective - Date & Time of Evaluation Date of Evaluation: 09/24/18 Time of Evaluation: 08:00 Objective - Vital Signs/Intake and Output Vital Signs (last 24 hours): Temp Pulse Resp BP Pulse Ox 97.9 F 89 20 127/84 98 09/24/18 12:23 09/24/18 12:23 09/24/18 12:23 09/24/18 12:23 09/24/18 12:23 - Medications Medications: Current Medications Acetaminophen (Tylenol 325mg Tab) 650 mg PO Q4 PRN PRN Reason: Fever >101.0 Last Admin: 09/22/18 20:43 Dose: 650 mg Carbidopa/Levodopa (Sinemet) 2 tab PO BID [facility] Last Admin: 09/24/18 09:02 Dose: 2 tab Enoxaparin Sodium (Lovenox) 40 mg SC DAILY [facility]; Protocol Last Admin: 09/24/18 09:03 Dose: 40 mg Meropenem 500 mg/ Sodium (Chloride) 100 mls @ 100 mls/hr IVPB Q8 [facility]; Protocol Last Admin: 09/24/18 09:06 Dose: 100 mls/hr Vancomycin HCl 1 gm/ Sodium (Chloride) 250 mls @ 166.667 mls/hr IVPB Q12 [facility]; Protocol Last Admin: 09/24/18 09:05 Dose: 166.667 mls/hr Lactobacillus Acidophilus (Bacid Acidophilus) 1 cap PO BID [facility] Last Admin: 09/24/18 09:02 Dose: 1 cap Magnesium Oxide (Mag-Ox) 400 mg PO DAILY [facility] Last Admin: 09/24/18 12:50 Dose: 400 mg Pantoprazole Sodium (Protonix Ec Tab) 40 mg PO DAILY [facility] Last Admin: 09/24/18 09:02 Dose: 40 mg - Labs Labs: 09/24/18 05:15 09/24/18 05:15 PT 16.8 Seconds (9.8-13.1) H 09/21/18 02:45 INR 1.5 09/21/18 02:45 APTT 37.9 Seconds (25.6-37.1) H 09/21/18 02:45 Assessment and Plan (1) Sepsis Status: Acute (2) UTI (urinary tract infection) Status: Acute (3) Cellulitis of right lower extremity Status: Acute (4) Parkinsonism Status: Chronic
--- NOTE | 2018-09-24 15:44 | US ---
Date of service: 09/24/2018 PROCEDURE: Ultrasound of the Bladder and prostate HISTORY: Elevated PSA COMPARISON: None available. TECHNIQUE: Sonographic evaluation of the bladder was performed. FINDINGS: Unremarkable without wall thickening or intraluminal debris. No calculus or gross mass lesion. No free fluid in pelvis. Bilateral ureteral jets were not visualized. Prevoid Volume: 396.4 cc. Post void residual: 166.9 cc. Mildly enlarged prostate measuring 5.0 x 3.0 x 4.8 cm compatible with volume of 39.1 mL. Coarse central prostatic calcification. IMPRESSION: Mild urinary retention with residual volume of 167 m Prostatomegaly..
--- NOTE | 2018-09-25 09:07 | CP.PCM.DIS ---
Provider - Provider Date of Admission: 09/21/18 04:02 Attending physician: Albertina Sanchez MD Time Spent in preparation of Discharge (in minutes): 25 Diagnosis - Discharge Diagnosis (1) Sepsis secondary to UTI Status: Acute (2) Parkinsonism Status: Chronic (3) DVT prophylaxis Status: Inactive Hospital Course - Lab Results Lab Results: Micro Results 09/21/18 02:45 Blood-Venous Blood Culture - Preliminary NO GROWTH AFTER 4 DAYS 09/21/18 18:30 Urine Urine Culture - Final No Growth (<1,000 CFU/ML) 09/21/18 02:00 Urine,Clean Catch Urine Culture - Final Escherichia Coli Most Recent Lab Values WBC 6.0 K/uL (4.8-10.8) 09/24/18 05:15 RBC 3.71 Mil/uL (4.40-5.90) L 09/24/18 05:15 Hgb 10.9 g/dL (12.0-18.0) L 09/24/18 05:15 Hct 32.2 % (35.0-51.0) L 09/24/18 05:15 MCV 87.0 fl (80.0-94.0) 09/24/18 05:15 MCH 29.5 pg (27.0-31.0) 09/24/18 05:15 MCHC 34.0 g/dL (33.0-37.0) 09/24/18 05:15 RDW 13.7 % (11.5-14.5) 09/24/18 05:15 Plt Count 202 K/uL (130-400) 09/24/18 05:15 MPV 8.5 fl (7.2-11.7) 09/24/18 05:15 Neut % (Auto) 55.2 % (50.0-75.0) 09/24/18 05:15 Lymph % (Auto) 29.3 % (20.0-40.0) 09/24/18 05:15 [place] % (Auto) 9.2 % (0.0-10.0) 09/24/18 05:15 Eos % (Auto) 5.6 % (0.0-4.0) H 09/24/18 05:15 Baso % (Auto) 0.7 % (0.0-2.0) 09/24/18 05:15 Neut # (Auto) 3.3 K/uL (1.8-7.0) 09/24/18 05:15 Lymph # (Auto) 1.8 K/uL (1.0-4.3) 09/24/18 05:15 [place] # (Auto) 0.6 K/uL (0.0-0.8) 09/24/18 05:15 Eos # (Auto) 0.3 K/uL (0.0-0.7) 09/24/18 05:15 Baso # (Auto) 0.0 K/uL (0.0-0.2) 09/24/18 05:15 Neutrophils % (Manual) 81 % (42-75) H 09/21/18 02:45 Band Neutrophils % 5 % (0-2) H 09/21/18 02:45 Lymphocytes % (Manual) 9 % (20-50) L 09/21/18 02:45 Reactive Lymphs % 2 % (0-0) H 09/21/18 02:45 Monocytes % (Manual) 3 % (0-10) 09/21/18 02:45 Smudge Cells Present 09/21/18 02:45 Platelet Estimate Normal (NORMAL) 09/21/18 02:45 Plt Clumps, EDTA Present 09/21/18 02:45 Spherocytes Slight 09/21/18 02:45 PT 16.8 Seconds (9.8-13.1) H 09/21/18 02:45 INR 1.5 09/21/18 02:45 APTT 37.9 Seconds (25.6-37.1) H 09/21/18 02:45 pO2 22 mm/Hg (30-55) L 09/21/18 03:03 VBG pH 7.45 (7.32-7.43) H 09/21/18 03:03 VBG pCO2 44 mmHg (40-60) 09/21/18 03:03 VBG HCO3 27.9 mmol/L 09/21/18 03:03 VBG Total CO2 32.0 mmol/L (22-28) H 09/21/18 03:03 VBG O2 Sat (Calc) 43.1 % (40-65) 09/21/18 03:03 VBG Base Excess 5.8 mmol/L (0.0-2.0) H 09/21/18 03:03 VBG Potassium 3.8 mmol/L (3.6-5.2) 09/21/18 03:03 Sodium 129.0 mmol/L (132-148) L 09/21/18 03:03 Chloride 104.0 mmol/L (98-107) 09/21/18 03:03 Glucose 105 mg/dL (75-110) 09/21/18 03:03 Lactate 1.1 mmol/L (0.7-2.1) 09/21/18 03:03 FiO2 21.0 % 09/21/18 03:03 Sodium 140 mmol/l (132-148) 09/24/18 05:15 Potassium 3.3 MMOL/L (3.6-5.0) L 09/24/18 05:15 Chloride 109 mmol/L (98-107) H 09/24/18 05:15 Carbon Dioxide 25 mmol/L (22-30) 09/24/18 05:15 Anion Gap 9 (10-20) L 09/24/18 05:15 BUN 6 mg/dl (9-20) L 09/24/18 05:15 Creatinine 0.7 mg/dl (0.8-1.5) L 09/24/18 05:15 Est GFR ( Amer) > 60 09/24/18 05:15 Est GFR (Non-Af Amer) > 60 09/24/18 05:15 Random Glucose 91 mg/dL (75-110) 09/24/18 05:15 Calcium 8.3 mg/dL (8.4-10.2) L 09/24/18 05:15 Phosphorus 1.9 mg/dl (2.5-4.5) L 09/21/18 02:45 Magnesium 1.6 MG/DL (1.6-2.3) 09/21/18 02:45 Total Bilirubin 0.3 mg/dl (0.2-1.3) 09/24/18 05:15 AST 46 U/L (17-59) 09/24/18 05:15 ALT 34 U/L (21-72) 09/24/18 05:15 Alkaline Phosphatase 53 U/L (38-126) 09/24/18 05:15 CK-MB (Mass) 13.1 ng/mL (0.0-3.38) H 09/21/18 03:11 Troponin I < 0.0120 ng/mL (0.00-0.120) 09/21/18 13:20 Total Protein 6.0 G/DL (6.3-8.2) L 09/24/18 05:15 Albumin 2.7 g/dL (3.5-5.0) L 09/24/18 05:15 Globulin 3.3 gm/dL (2.2-3.9) 09/24/18 05:15 Albumin/Globulin Ratio 0.8 (1.0-2.1) L 09/24/18 05:15 Prostate Specific Ag 19.7 ng/ML (0.00-4.0) H 09/23/18 04:25 Free T4 1.15 ng/dL (0.78-2.19) 09/24/18 12:41 Free T3 pg/mL 2.24 pg/mL (2.77-5.27) L 09/24/18 12:41 Venous Blood Potassium 3.8 mmol/L (3.6-5.2) 09/21/18 03:03 Urine Color Edna (YELLOW) 09/21/18 10:00 Urine Clarity Turbid (Clear) 09/21/18 10:00 Urine pH 5.0 (5.0-8.0) 09/21/18 10:00 Ur Specific [place] 1.019 (1.003-1.030) 09/21/18 10:00 Urine Protein 100 mg/dL (NEGATIVE) 09/21/18 10:00 Urine Glucose (UA) Neg mg/dL (Normal) 09/21/18 10:00 Urine Ketones Negative mg/dL (NEGATIVE) 09/21/18 10:00 Urine Blood Large (NEGATIVE) 09/21/18 10:00 Urine Nitrate Positive (NEGATIVE) H 09/21/18 10:00 Urine Bilirubin Negative (NEGATIVE) 09/21/18 10:00 Urine Urobilinogen 4.0 mg/dL (0.2-1.0) 09/21/18 10:00 Ur Leukocyte Esterase Trace Rubén/uL (Negative) 09/21/18 10:00 Urine RBC (Auto) 21 /hpf (0-3) H 09/21/18 10:00 Urine WBC Clumps (Auto) Many /hpf (NONE) H 09/21/18 10:00 Urine Microscopic WBC 1269 /hpf (0-5) H 09/21/18 10:00 Ur Squamous Epith Cells 2 /hpf (0-5) 09/21/18 10:00 Urine Bacteria Occ (<OCC) H 09/21/18 10:00 Urine Yeast (Budding) Occ /hpf (NEGATIVE) H 09/21/18 10:00 Vancomycin Trough 13.4 ug/mL (5.0-10.0) H 09/24/18 05:15 Discharge Exam - Head Exam Head Exam: NORMOCEPHALIC Discharge Plan - Discharge Medications Prescriptions: MEROPENEM 500 MG in NS [Merrem IV 500 MG/NS 50 ML] 500 mg IV Q8 #24 bag - Follow Up Plan Condition: GUARDED Disposition: TRANSF TO SNF
== END 2018-09-24 15:20 | DRG 872 ==
LOC: H.ER 01:25 → H.ERHOLD 04:02 → H.TEL 06:32
PROVIDERS: ADMIT Internal Medicine; ATTEND Internal Medicine
DX: A41.9 Sepsis, unspecified organism (principal); N39.0 Urinary tract infection, site not specified; L03.115 Cellulitis of right lower limb; G20 Parkinson's disease; H54.61 Unqualified visual loss, right eye, normal vision left eye; Z16.29 Resistance to other single specified antibiotic; B96.20 Unspecified Escherichia coli [E. coli] as the cause of diseases classified elsewhere

== ENCOUNTER 2018-09-24 12:05 | Inpatient (IN) | payer OTHER ==
[2018-09-24 15:35] VITALS: BMI 32.5
[2018-09-24] MEDS: Lactobacillus Acidophilus 500 MU Cap PO SCH (17:47)
[2018-09-24] MEDS: Alum-Mag Hydrox-Simethicone Susp (30 mL) PO PRN (18:42)
[2018-09-24] MEDS: Meropenem 500 MG in Sodium Chloride 0.9% 100 ML IVPB SCH (21:07)
[2018-09-25] MEDS: Meropenem 500 MG in Sodium Chloride 0.9% 100 ML IVPB SCH ×3 (04:10→22:02)
[2018-09-25 07:04] LABS: HEMOGLOBIN 11.9 g/dL (12.0-18.0); MEAN CELL VOLUME 86.9 fl (80.0-94.0); MEAN CORPUSCULAR HEMOGLOBIN 29.2 pg (27.0-31.0); MEAN CORPUSCULAR HGB CONC 33.6 g/dL (33.0-37.0); RBC 4.07 Mil/uL (4.40-5.90)
[2018-09-25 07:18] LABS: ALB/GLOB RATIO 0.8 (1.0-2.1); ALBUMIN 2.9 g/dL (3.5-5.0); ALT/SGPT 40 U/L (21-72); AST/SGOT 42 U/L (17-59); BLOOD UREA NITROGEN 7 mg/dl (9-20); GFR NON-AFRICAN AMERICAN > 60
[2018-09-25] MEDS: Enoxaparin 40 mg Syringe SC SCH (08:48)
[2018-09-25] MEDS: Pantoprazole 40 mg EC Tab PO SCH (08:48)
[2018-09-25] MEDS: Lactobacillus Acidophilus 500 MU Cap PO SCH ×2 (08:48→17:22)
[2018-09-25] MEDS: Magnesium Oxide 400 mg Tab UD PO SCH (08:48)
--- NOTE | 2018-09-25 12:39 | CP.PCM.CON ---
History of Present Illness - History of Present Illness History of Present Illness: 63 y/o male with a PMHx of Parkinson's Disease presents to the ED for evaluation of a near syncopal episode. Patient was recently treated here for UTI and cellulitis Now in TCU for completion of antibiotic rx - Medical History PMH: Parkinson's Disease , blind right eye Denies: HIV, Chronic Kidney Disease Review of Systems - Review of Systems All systems: reviewed and no additional remarkable complaints except - Constitutional Constitutional: As Per HPI - EENT Eyes: absent: As Per HPI, Blind Spots, Blurred Vision, Change in Vision, Decre ased Night Vision, Diplopia, Discharge, Dry Eye, Exophthalmos, Floaters, Irritation, Itchy Eyes, Loss of Peripheral Vision, Pain, Photophobia, Requires Corrective Lenses, Sees Flashes, Spots in Vision, Tunnel Vision, Other Visual Disturbances, Loss of Vision, Other Ears: absent: As Per HPI, Decreased Hearing, Ear Discharge, Ear Pain, Tinnitus, Abnormal Hearing, Disequilibrium, Dizziness, Other Nose/Mouth/Throat: absent: As Per HPI, Epistaxis, Nasal Congestion, Nasal Discharge, Nasal Obstruction, Nasal Trauma, Nose Pain, Post Nasal Drip, Sinus P ain, Sinus Pressure, Bleeding Gums, Change in Voice, Dental Pain, Dry Mouth, Dysphagia, Halitosis, Hoarsness, Lip Swelling, Mouth Lesions, Mouth Pain, Odynophagia, Sore Throat, Throat Swelling, Tongue Swelling, Facial Pain, Neck Pain, Neck Mass, Other - Cardiovascular Cardiovascular: As Per HPI - Respiratory Respiratory: absent: As Per HPI, Cough, Dyspnea, Hemoptysis, Dyspnea on Exertion, Wheezing, Snoring, Stridor, Pain on Inspiration, Chest Congestion, Excessive Mucous Production, Change in Mucous Color, Pain with Coughing, Other - Gastrointestinal Gastrointestinal: absent: As Per HPI, Abdominal Pain, Belching, Bloating, Change in Bowel Habits, Change in Stool Character, Coffee Ground Emesis, Constipation, Cramping, Diarrhea, Dyspepsia, Dysphagia, Early Satiety, Excessive Flatus, Fecal Incontinence, Heartburn, Hematemesis, Hematochezia, Loose Stools, Melena, Nausea, Odynophagia, Temesmus, Vomiting, Other - Genitourinary Genitourinary: As Per HPI - Musculoskeletal Musculoskeletal: As Per HPI - Integumentary Integumentary: As Per HPI - Neurological Neurological: As Per HPI - Psychiatric Psychiatric: absent: As Per HPI, Abnormal Sleep Pattern, Anhedonia, Anxiety, Auditory Hallucinations, Behavioral Changes, Change in Appetite, Change in Libido, Confusion, Depression, Difficulty Concentrating, Hallucinations, Homicidal Ideation, Hopelessness, Irritability, Memory Loss, Mood Swings, Panic Attacks, Paranoia, Suicidal Ideation, Visual Hallucinations, Tactile Hallucinat ions, Other - Endocrine Endocrine: absent: As Per HPI, Change in Body Appearance, Change in Libido, Cold Intolorance, Deepening of Voice, Excessive Sweating, Fatigue, Flushing, Heat Intolorance, Increase in Ring/Shoe/Hat Size, Palpitations, Polydipsia, Polyphag ia, Polyuria, Other - Hematologic/Lymphatic Hematologic: absent: As Per HPI, Easy Bleeding, Easy Bruising, Lymphadenopathy, Other Past Patient History - Past Medical History & Family History Past Medical History?: Yes - Past Social History Smoking Status: Never Smoked - CARDIAC Hx Cardiac Disorders: No - PULMONARY Hx Respiratory Disorders: No - NEUROLOGICAL Hx Parkinson's Disease: Yes - HEENT Hx HEENT Problems: Yes - RENAL Hx Chronic Kidney Disease: No - ENDOCRINE/METABOLIC Hx Endocrine Disorders: No - HEMATOLOGICAL/ONCOLOGICAL Hx Human Immunodeficiency Virus (HIV): No - INTEGUMENTARY Hx Dermatological Problems: No - MUSCULOSKELETAL/RHEUMATOLOGICAL Hx Falls: Yes (09/21/2018) - GASTROINTESTINAL Hx Gastrointestinal Disorders: No - GENITOURINARY/GYNECOLOGICAL Hx Genitourinary Disorders: No - PSYCHIATRIC Hx Substance Use: No - SURGICAL HISTORY Hx Surgeries: Yes Hx Eye Surgery: Yes (right cornea) - ANESTHESIA Hx Anesthesia: Yes Hx Anesthesia Reactions: No Meds Allergies/Adverse Reactions: Allergies Allergy/AdvReac Type Severity Reaction Status Date / Time No Known Allergies Allergy Verified 09/24/18 15:33 - Medications Medications: Current Medications Acetaminophen (Tylenol 325mg Tab) 650 mg PO Q4 PRN PRN Reason: Fever >101.0 Al Hydrox/Mg Hydrox/Simethicone (Maalox Plus 30 Ml) 30 ml PO Q6 PRN PRN Reason: Indigestion / Heartburn Last Admin: 09/24/18 18:42 Dose: 30 ml Carbidopa/Levodopa (Sinemet) 2 tab PO BID [facility] Last Admin: 09/25/18 08:48 Dose: 2 tab Enoxaparin Sodium (Lovenox) 40 mg SC DAILY [facility]; Protocol Last Admin: 09/25/18 08:48 Dose: 40 mg Meropenem 500 mg/ Sodium (Chloride) 100 mls @ 100 mls/hr IVPB Q8@0500,1300,2100 [facility]; Protocol Last Admin: 09/25/18 12:30 Dose: 100 mls/hr Vancomycin HCl 1 gm/ Sodium (Chloride) 250 mls @ 166.667 mls/hr IVPB Q12@0500,1700 [facility]; Protocol Last Admin: 09/25/18 04:11 Dose: 166.667 mls/hr Lactobacillus Acidophilus (Bacid Acidophilus) 1 cap PO BID [facility] Last Admin: 09/25/18 08:48 Dose: 1 cap Magnesium Oxide (Mag-Ox) 400 mg PO DAILY [facility] Last Admin: 09/25/18 08:48 Dose: 400 mg Pantoprazole Sodium (Protonix Ec Tab) 40 mg PO DAILY [facility] Last Admin: 09/25/18 08:48 Dose: 40 mg Results - Vital Signs Recent Vital Signs: Last Vital Signs Temp 98.1 F 09/25/18 07:33 Pulse 87 09/25/18 07:33 Resp 20 09/25/18 07:33 BP 115/81 09/25/18 07:33 Pulse Ox 98 09/25/18 07:33 - Labs Result Diagrams: 09/25/18 06:35 09/25/18 06:35 Labs: Laboratory Results - last 24 hr 09/25/18 09/25/18 06:35 06:35 WBC 7.0 RBC 4.07 L Hgb 11.9 L Hct 35.3 MCV 86.9 MCH 29.2 MCHC 33.6 RDW 14.0 Plt Count 239 Sodium 143 Potassium 3.9 Chloride 109 H Carbon Dioxide 30 Anion Gap 8 L BUN 7 L Creatinine 0.7 L Est GFR ( Amer) > 60 Est GFR (Non-Af Amer) > 60 Random Glucose 91 Calcium 9.0 Total Bilirubin 0.3 AST 42 ALT 40 Alkaline Phosphatase 59 Total Protein 6.6 Albumin 2.9 L Globulin 3.6 Albumin/Globulin Ratio 0.8 L
--- NOTE | 2018-09-26 01:18 | CP.PCM.HP ---
History of Present Illness - History of Present Illness History of Present Illness: CC: IV Merem and PT/OT History of Present Illness: A 63 y/o male with a PMHx of Parkinson's Disease presents to the ED for evaluation a fall and feeling of passing out. Patient was recently admitted for a UTI and cellulitis. However, patient states he never filled Bactrim prescription upon discharge but microbiology indicates patient was resistant to macrobid. Patient's sister reports she found the patient on the floor where he was there for approximately three hours. In the Hospital Course he was found t have ESBL+ UTI, and ID recommended a total 14 days of IV Meropenem. PT evaluated, and also recommended Physical Therapy, and admitted to TCU. Present on Admission - Present on Admission Any Indicators Present on Admission: No Review of Systems - Review of Systems All systems: reviewed and no additional remarkable complaints except Review of Systems: as per HPI Past Patient History - Past Medical History & Family History Past Medical History?: Yes Past Family History: Reviewed and not pertinent - Past Social History Smoking Status: Never Smoked Alcohol: None Drugs: Denies - CARDIAC Hx Cardiac Disorders: No - PULMONARY Hx Respiratory Disorders: No - NEUROLOGICAL Hx Parkinson's Disease: Yes - HEENT Hx HEENT Problems: Yes - RENAL Hx Chronic Kidney Disease: No - ENDOCRINE/METABOLIC Hx Endocrine Disorders: No - HEMATOLOGICAL/ONCOLOGICAL Hx Human Immunodeficiency Virus (HIV): No - INTEGUMENTARY Hx Dermatological Problems: No - MUSCULOSKELETAL/RHEUMATOLOGICAL Hx Falls: Yes (09/21/2018) - GASTROINTESTINAL Hx Gastrointestinal Disorders: No - GENITOURINARY/GYNECOLOGICAL Hx Genitourinary Disorders: No - PSYCHIATRIC Hx Substance Use: No - SURGICAL HISTORY Hx Surgeries: Yes Hx Eye Surgery: Yes (right cornea) - ANESTHESIA Hx Anesthesia: Yes Hx Anesthesia Reactions: No Meds Allergies/Adverse Reactions: Allergies Allergy/AdvReac Type Severity Reaction Status Date / Time No Known Allergies Allergy Verified 09/24/18 15:33 Physical Exam - Constitutional Appears: Well, No Acute Distress - Head Exam Head Exam: ATRAUMATIC, NORMAL INSPECTION, NORMOCEPHALIC - Eye Exam Eye Exam: EOMI, Normal appearance, PERRL Pupil Exam: NORMAL ACCOMODATION, PERRL - ENT Exam ENT Exam: Mucous Membranes Moist, Normal Exam - Neck Exam Neck exam: Positive for: Normal Inspection - Respiratory Exam Respiratory Exam: Clear to Auscultation Bilateral, NORMAL BREATHING PATTERN - Cardiovascular Exam Cardiovascular Exam: REGULAR RHYTHM, +S1, +S2 - GI/Abdominal Exam GI & Abdominal Exam: Normal Bowel Sounds, Soft. absent: Tenderness - Extremities Exam Extremities exam: Positive for: normal capillary refill, normal inspection - Back Exam Back exam: NORMAL INSPECTION - Neurological Exam Neurological exam: Abnormal Gait, Alert, CN II-XII Intact, Motor Sensory Deficit, Oriented x3, Reflexes Normal Additional comments: +Tremor - Psychiatric Exam Psychiatric exam: Normal Affect, Normal Mood - Skin Skin Exam: Dry, Intact, Normal Color, Warm Results - Vital Signs Recent Vital Signs: Last Vital Signs Temp 98.4 F 09/25/18 19:42 Pulse 101 H 09/25/18 19:42 Resp 20 09/25/18 19:42 BP 124/71 09/25/18 19:42 Pulse Ox 96 09/25/18 19:42 - Labs Result Diagrams: 09/25/18 06:35 09/25/18 06:35 Labs: Laboratory Results - last 24 hr 09/25/18 09/25/18 06:35 06:35 WBC 7.0 RBC 4.07 L Hgb 11.9 L Hct 35.3 MCV 86.9 MCH 29.2 MCHC 33.6 RDW 14.0 Plt Count 239 Sodium 143 Potassium 3.9 Chloride 109 H Carbon Dioxide 30 Anion Gap 8 L BUN 7 L Creatinine 0.7 L Est GFR ( Amer) > 60 Est GFR (Non-Af Amer) > 60 Random Glucose 91 Calcium 9.0 Total Bilirubin 0.3 AST 42 ALT 40 Alkaline Phosphatase 59 Total Protein 6.6 Albumin 2.9 L Globulin 3.6 Albumin/Globulin Ratio 0.8 L Assessment & Plan (1) Sepsis secondary to UTI Assessment and Plan: Leg Cellulitis IV Merem and Vancomycin Urine and Blood Culture IVF ID Consult Status: Acute (2) Parkinsonism Status: Chronic (3) DVT prophylaxis Status: Inactive (4) Physical deconditioning Assessment and Plan: Physical and Occupational Therapy Status: Acute Priority: Medium
[2018-09-26] MEDS: Meropenem 500 MG in Sodium Chloride 0.9% 100 ML IVPB SCH ×3 (04:53→23:54)
[2018-09-26] MEDS: Enoxaparin 40 mg Syringe SC SCH (09:52)
[2018-09-26] MEDS: Lactobacillus Acidophilus 500 MU Cap PO SCH ×2 (09:52→17:14)
[2018-09-26] MEDS: Magnesium Oxide 400 mg Tab UD PO SCH (09:53)
[2018-09-26] MEDS: Pantoprazole 40 mg EC Tab PO SCH (09:53)
--- NOTE | 2018-09-26 22:27 | CP.PCM.PN ---
Subjective - Date & Time of Evaluation Date of Evaluation: 09/26/18 Time of Evaluation: 14:55 Objective - Vital Signs/Intake and Output Vital Signs (last 24 hours): Temp Pulse Resp BP Pulse Ox 98.1 F 85 20 122/75 97 09/26/18 19:59 09/26/18 19:59 09/26/18 19:59 09/26/18 19:59 09/26/18 19:59 - Medications Medications: Current Medications Acetaminophen (Tylenol 325mg Tab) 650 mg PO Q4 PRN PRN Reason: Fever >101.0 Al Hydrox/Mg Hydrox/Simethicone (Maalox Plus 30 Ml) 30 ml PO Q6 PRN PRN Reason: Indigestion / Heartburn Last Admin: 09/24/18 18:42 Dose: 30 ml Carbidopa/Levodopa (Sinemet) 2 tab PO BID [facility] Last Admin: 09/26/18 17:14 Dose: 2 tab Enoxaparin Sodium (Lovenox) 40 mg SC DAILY [facility]; Protocol Last Admin: 09/26/18 09:52 Dose: 40 mg Meropenem 500 mg/ Sodium (Chloride) 100 mls @ 100 mls/hr IVPB Q8@0500,1300,2100 [facility]; Protocol Last Admin: 09/26/18 12:37 Dose: 100 mls/hr Vancomycin HCl 1 gm/ Sodium (Chloride) 250 mls @ 166.667 mls/hr IVPB Q12@0500,1700 [facility]; Protocol Last Admin: 09/26/18 17:17 Dose: 166.667 mls/hr Lactobacillus Acidophilus (Bacid Acidophilus) 1 cap PO BID [facility] Last Admin: 09/26/18 17:14 Dose: 1 cap Magnesium Oxide (Mag-Ox) 400 mg PO DAILY [facility] Last Admin: 09/26/18 09:53 Dose: 400 mg Pantoprazole Sodium (Protonix Ec Tab) 40 mg PO DAILY [facility] Last Admin: 09/26/18 09:53 Dose: 40 mg - Labs Labs: 09/25/18 06:35 09/25/18 06:35 Assessment and Plan (1) Sepsis secondary to UTI Status: Acute (2) Parkinsonism Status: Chronic (3) DVT prophylaxis Status: Inactive (4) Physical deconditioning Status: Acute
[2018-09-27] MEDS: Meropenem 500 MG in Sodium Chloride 0.9% 100 ML IVPB SCH ×3 (05:44→21:29)
[2018-09-27] MEDS: Lactobacillus Acidophilus 500 MU Cap PO SCH ×2 (08:56→16:30)
[2018-09-27] MEDS: Enoxaparin 40 mg Syringe SC SCH (08:56)
[2018-09-27] MEDS: Magnesium Oxide 400 mg Tab UD PO SCH (08:57)
[2018-09-27] MEDS: Pantoprazole 40 mg EC Tab PO SCH (08:57)
[2018-09-27] MEDS: Alum-Mag Hydrox-Simethicone Susp (30 mL) PO PRN (17:51)
[2018-09-28] MEDS: Meropenem 500 MG in Sodium Chloride 0.9% 100 ML IVPB SCH ×3 (04:46→21:10)
[2018-09-28] MEDS: Lactobacillus Acidophilus 500 MU Cap PO SCH ×2 (08:23→16:16)
[2018-09-28] MEDS: Enoxaparin 40 mg Syringe SC SCH (08:23)
[2018-09-28] MEDS: Pantoprazole 40 mg EC Tab PO SCH (08:24)
[2018-09-28] MEDS: Magnesium Oxide 400 mg Tab UD PO SCH (08:24)
--- NOTE | 2018-09-28 23:33 | CP.PCM.PN ---
Subjective - Date & Time of Evaluation Date of Evaluation: 09/27/18 Time of Evaluation: 19:50 Objective - Vital Signs/Intake and Output Vital Signs (last 24 hours): Temp Pulse Resp BP Pulse Ox 98.2 F 78 20 124/67 97 09/28/18 20:25 09/28/18 20:25 09/28/18 20:25 09/28/18 20:25 09/28/18 20:25 - Medications Medications: Current Medications Acetaminophen (Tylenol 325mg Tab) 650 mg PO Q4 PRN PRN Reason: Fever >101.0 Al Hydrox/Mg Hydrox/Simethicone (Maalox Plus 30 Ml) 30 ml PO Q6 PRN PRN Reason: Indigestion / Heartburn Last Admin: 09/27/18 17:51 Dose: 30 ml Carbidopa/Levodopa (Sinemet) 2 tab PO BID [facility] Last Admin: 09/28/18 16:16 Dose: 2 tab Meropenem 500 mg/ Sodium (Chloride) 100 mls @ 100 mls/hr IVPB Q8@0500,1300,2100 [facility]; Protocol Last Admin: 09/28/18 21:10 Dose: 100 mls/hr Vancomycin HCl 1 gm/ Sodium (Chloride) 250 mls @ 166.667 mls/hr IVPB Q12@0500,1700 [facility]; Protocol Last Admin: 09/28/18 16:16 Dose: 166.667 mls/hr Lactobacillus Acidophilus (Bacid Acidophilus) 1 cap PO BID [facility] Last Admin: 09/28/18 16:16 Dose: 1 cap Magnesium Oxide (Mag-Ox) 400 mg PO DAILY [facility] Last Admin: 09/28/18 08:24 Dose: 400 mg Pantoprazole Sodium (Protonix Ec Tab) 40 mg PO DAILY [facility] Last Admin: 09/28/18 08:24 Dose: 40 mg - Labs Labs: 09/25/18 06:35 09/25/18 06:35 Assessment and Plan (1) Sepsis secondary to UTI Status: Acute (2) Parkinsonism Status: Chronic (3) DVT prophylaxis Status: Inactive (4) Physical deconditioning Status: Acute
--- NOTE | 2018-09-28 23:36 | CP.PCM.PN ---
Subjective - Date & Time of Evaluation Date of Evaluation: 09/28/18 Time of Evaluation: 15:50 Objective - Vital Signs/Intake and Output Vital Signs (last 24 hours): Temp Pulse Resp BP Pulse Ox 98.2 F 78 20 124/67 97 09/28/18 20:25 09/28/18 20:25 09/28/18 20:25 09/28/18 20:25 09/28/18 20:25 - Medications Medications: Current Medications Acetaminophen (Tylenol 325mg Tab) 650 mg PO Q4 PRN PRN Reason: Fever >101.0 Al Hydrox/Mg Hydrox/Simethicone (Maalox Plus 30 Ml) 30 ml PO Q6 PRN PRN Reason: Indigestion / Heartburn Last Admin: 09/27/18 17:51 Dose: 30 ml Carbidopa/Levodopa (Sinemet) 2 tab PO BID [facility] Last Admin: 09/28/18 16:16 Dose: 2 tab Meropenem 500 mg/ Sodium (Chloride) 100 mls @ 100 mls/hr IVPB Q8@0500,1300,2100 [facility]; Protocol Last Admin: 09/28/18 21:10 Dose: 100 mls/hr Vancomycin HCl 1 gm/ Sodium (Chloride) 250 mls @ 166.667 mls/hr IVPB Q12@0500,1700 [facility]; Protocol Last Admin: 09/28/18 16:16 Dose: 166.667 mls/hr Lactobacillus Acidophilus (Bacid Acidophilus) 1 cap PO BID [facility] Last Admin: 09/28/18 16:16 Dose: 1 cap Magnesium Oxide (Mag-Ox) 400 mg PO DAILY [facility] Last Admin: 09/28/18 08:24 Dose: 400 mg Pantoprazole Sodium (Protonix Ec Tab) 40 mg PO DAILY [facility] Last Admin: 09/28/18 08:24 Dose: 40 mg - Labs Labs: 09/25/18 06:35 09/25/18 06:35 Assessment and Plan (1) Sepsis secondary to UTI Status: Acute (2) Parkinsonism Status: Chronic (3) DVT prophylaxis Status: Inactive (4) Physical deconditioning Status: Acute
[2018-09-29] MEDS: Meropenem 500 MG in Sodium Chloride 0.9% 100 ML IVPB SCH ×3 (04:53→20:47)
[2018-09-29] MEDS: Magnesium Oxide 400 mg Tab UD PO SCH (09:19)
[2018-09-29] MEDS: Pantoprazole 40 mg EC Tab PO SCH (09:20)
[2018-09-29] MEDS: Lactobacillus Acidophilus 500 MU Cap PO SCH ×2 (09:21→16:26)
--- NOTE | 2018-09-29 11:37 | CP.PCM.PN ---
Subjective - Date & Time of Evaluation Date of Evaluation: 09/29/18 Time of Evaluation: 07:00 - Subjective Subjective: afeb on IV antibiotics nad Objective - Vital Signs/Intake and Output Vital Signs (last 24 hours): Temp Pulse Resp BP Pulse Ox 97.7 F 80 20 132/94 H 95 09/29/18 09:10 09/29/18 09:10 09/29/18 09:10 09/29/18 09:10 09/29/18 09:10 - Medications Medications: Current Medications Acetaminophen (Tylenol 325mg Tab) 650 mg PO Q4 PRN PRN Reason: Fever >101.0 Al Hydrox/Mg Hydrox/Simethicone (Maalox Plus 30 Ml) 30 ml PO Q6 PRN PRN Reason: Indigestion / Heartburn Last Admin: 09/27/18 17:51 Dose: 30 ml Carbidopa/Levodopa (Sinemet) 2 tab PO BID [facility] Last Admin: 09/29/18 09:20 Dose: 2 tab Meropenem 500 mg/ Sodium (Chloride) 100 mls @ 100 mls/hr IVPB Q8@0500,1300,2100 [facility]; Protocol Last Admin: 09/29/18 04:53 Dose: 100 mls/hr Vancomycin HCl 1 gm/ Sodium (Chloride) 250 mls @ 166.667 mls/hr IVPB Q12 @0500,1700 [facility]; Protocol Last Admin: 09/29/18 04:58 Dose: 166.667 mls/hr Lactobacillus Acidophilus (Bacid Acidophilus) 1 cap PO BID [facility] Last Admin: 09/29/18 09:21 Dose: 1 cap Magnesium Oxide (Mag-Ox) 400 mg PO DAILY [facility] Last Admin: 09/29/18 09:19 Dose: 400 mg Pantoprazole Sodium (Protonix Ec Tab) 40 mg PO DAILY [facility] Last Admin: 09/29/18 09:20 Dose: 40 mg - Labs Labs: 09/25/18 06:35 09/25/18 06:35 - Constitutional Appears: Non-toxic, Chronically Ill - Head Exam Head Exam: NORMOCEPHALIC - Eye Exam Eye Exam: absent: Scleral icterus - ENT Exam ENT Exam: Mucous Membranes Dry - Neck Exam Neck Exam: absent: Lymphadenopathy - Respiratory Exam Respiratory Exam: Decreased Breath Sounds - Cardiovascular Exam Cardiovascular Exam: REGULAR RHYTHM - GI/Abdominal Exam GI & Abdominal Exam: Distended, Soft Assessment and Plan - Assessment and Plan (Free Text) Plan: cont iv rx for uti
[2018-09-29] MEDS: Enoxaparin 40 mg Syringe SC SCH (17:28)
[2018-09-29 19:41] VITALS: RESP 18
[2018-09-30] MEDS: Meropenem 500 MG in Sodium Chloride 0.9% 100 ML IVPB SCH ×2 (04:28→12:03)
[2018-09-30] MEDS: Enoxaparin 40 mg Syringe SC SCH (08:20)
[2018-09-30] MEDS: Lactobacillus Acidophilus 500 MU Cap PO SCH (08:20)
[2018-09-30] MEDS: Pantoprazole 40 mg EC Tab PO SCH (08:20)
[2018-09-30] MEDS: Magnesium Oxide 400 mg Tab UD PO SCH (08:20)
[2018-09-30 08:22] VITALS: BP 130/80; PULSE 84; TEMP 98.2; O2SAT 94
--- NOTE | 2018-09-30 23:20 | CP.PCM.PN ---
Subjective - Date & Time of Evaluation Date of Evaluation: 09/29/18 Time of Evaluation: 07:15 Objective - Vital Signs/Intake and Output Vital Signs (last 24 hours): Temp Pulse Resp BP Pulse Ox 98.2 F 84 18 130/80 94 L 09/30/18 08:21 09/30/18 08:21 09/30/18 08:21 09/30/18 08:21 09/30/18 08:21 - Labs Labs: 09/25/18 06:35 09/25/18 06:35 Assessment and Plan (1) Sepsis secondary to UTI Status: Acute (2) Parkinsonism Status: Chronic (3) DVT prophylaxis Status: Inactive (4) Physical deconditioning Status: Acute
--- NOTE | 2018-09-30 23:21 | CP.PCM.DIS ---
Provider - Provider Date of Admission: 09/24/18 15:35 Attending physician: Albertina Sanchez MD Time Spent in preparation of Discharge (in minutes): 25 Diagnosis - Discharge Diagnosis (1) Sepsis secondary to UTI Status: Acute (2) Parkinsonism Status: Chronic (3) DVT prophylaxis Status: Inactive (4) Physical deconditioning Status: Acute Priority: Medium (5) Cellulitis Status: Acute Hospital Course - Lab Results Lab Results: Most Recent Lab Values WBC 7.0 K/uL (4.8-10.8) 09/25/18 06:35 RBC 4.07 Mil/uL (4.40-5.90) L 09/25/18 06:35 Hgb 11.9 g/dL (12.0-18.0) L 09/25/18 06:35 Hct 35.3 % (35.0-51.0) 09/25/18 06:35 MCV 86.9 fl (80.0-94.0) 09/25/18 06:35 MCH 29.2 pg (27.0-31.0) 09/25/18 06:35 MCHC 33.6 g/dL (33.0-37.0) 09/25/18 06:35 RDW 14.0 % (11.5-14.5) 09/25/18 06:35 Plt Count 239 K/uL (130-400) 09/25/18 06:35 Sodium 143 mmol/l (132-148) 09/25/18 06:35 Potassium 3.9 MMOL/L (3.6-5.0) 09/25/18 06:35 Chloride 109 mmol/L (98-107) H 09/25/18 06:35 Carbon Dioxide 30 mmol/L (22-30) 09/25/18 06:35 Anion Gap 8 (10-20) L 09/25/18 06:35 BUN 7 mg/dl (9-20) L 09/25/18 06:35 Creatinine 0.7 mg/dl (0.8-1.5) L 09/25/18 06:35 Est GFR ( Amer) > 60 09/25/18 06:35 Est GFR (Non-Af Amer) > 60 09/25/18 06:35 Random Glucose 91 mg/dL (75-110) 09/25/18 06:35 Calcium 9.0 mg/dL (8.4-10.2) 09/25/18 06:35 Total Bilirubin 0.3 mg/dl (0.2-1.3) 09/25/18 06:35 AST 42 U/L (17-59) 09/25/18 06:35 ALT 40 U/L (21-72) 09/25/18 06:35 Alkaline Phosphatase 59 U/L (38-126) 09/25/18 06:35 Total Protein 6.6 G/DL (6.3-8.2) 09/25/18 06:35 Albumin 2.9 g/dL (3.5-5.0) L 09/25/18 06:35 Globulin 3.6 gm/dL (2.2-3.9) 09/25/18 06:35 Albumin/Globulin Ratio 0.8 (1.0-2.1) L 09/25/18 06:35 Discharge Exam - Head Exam Head Exam: NORMOCEPHALIC Discharge Plan - Follow Up Plan Condition: GOOD Disposition: REHAB FACILITY/REHAB UNIT Instructions: Urinary Tract Infection, Adult (DC), Fatigue, Preventing Falls, Extended-Spectrum Beta Lactamase Infection Referrals: Aj Winchester MD [Staff Provider] - Albertina Sanchez MD [Staff Provider] -
== END 2018-09-30 13:15 | DRG 872 ==
LOC: H.TCU 15:35
PROVIDERS: ADMIT Internal Medicine; ATTEND Internal Medicine
PROC: 3E03329 Introduction of Other Anti-infective into Peripheral Vein, Percutaneous Approach (ICD-10-PCS; principal; 2018-09-24)
PROC: F07Z9FZ Gait Training/Functional Ambulation Treatment using Assistive, Adaptive, Supportive or Protective Equipment (ICD-10-PCS; 2018-09-24)
PROC: F08Z4FZ Home Management Treatment using Assistive, Adaptive, Supportive or Protective Equipment (ICD-10-PCS; 2018-09-24)
PROC: F07M6FZ Therapeutic Exercise Treatment of Musculoskeletal System - Whole Body using Assistive, Adaptive, Supportive or Protective Equipment (ICD-10-PCS; 2018-09-25)
DX: A41.9 Sepsis, unspecified organism (principal); N39.0 Urinary tract infection, site not specified; L03.115 Cellulitis of right lower limb; G20 Parkinson's disease; H54.61 Unqualified visual loss, right eye, normal vision left eye